=== PATIENT | male | born 1965 | race Caucasian/White ===

== ENCOUNTER 2017-09-25 10:24 | Inpatient (IN) | payer BC, SELFPAY ==
[2017-09-25] VITALS (24 sets, daily range): BP systolic 133–173; BP diastolic 74–99; PULSE 56–109; RESP 11–22; TEMP 36.8–37; O2SAT 94–99; BMI 33.7; BMI 32.1; BMI 33.8
--- NOTE | 2017-09-25 10:34 | RAD_ITS ---
STUDY: X-RAY CHEST REASON FOR EXAM: Male, 52 years old. Chest pain. TECHNIQUE: Single AP portable view of the chest. COMPARISON: Comparison is made with prior study dated July 29, 2010. FINDINGS: EKG electrodes are seen. The lungs are clear and expanded. Scattered calcified granulomas. There is no demonstrated pleural abnormality. Normal size heart. Normal mediastinum and douglas. Normal visualized pulmonary arteries. Normal visualized aortic arch and descending thoracic aorta. There are diffuse degenerative changes of the visualized thoracic spine. Normal visualized ribs, clavicles, and shoulders. There is no demonstrated abnormality of the visualized soft tissue structures of the upper abdomen. RAD/Chest 1 View (Portable) IMPRESSION: No acute abnormality is seen. Electronically Signed: Domingo Rueda MD at 11:00 EST Tel [phone], Service support ,
--- NOTE | 2017-09-25 10:34 | EKG12_ITS ---
Test Reason : CP Blood Pressure : / mmHG Vent. Rate : 069 BPM Atrial Rate : 069 BPM P-R Int : 150 ms QRS Dur : 140 ms QT Int : 414 ms P-R-T Axes : 053 000 -15 degrees QTc Int : 443 ms Normal sinus rhythm Right bundle branch block Abnormal ECG Confirmed by JUANI CORDERO ([id number]), editorial intern ELMER NIXON ([id number]) on 09/27/2017 12:06:09 PM Referred By: LB Confirmed By:JUANI CORDERO
--- NOTE | 2017-09-25 10:43 | ED.DCSUM_ITS ---
- ER Visit Summary Date of Service: 09/25/17 Chief Complaint: Nausea and mild chest pressure now resolved History of Present Illness: The patient is a 52 M prior history of [place] CAD with 1 right RCA stent. That occurred in 2009. Patient's been doing well. He denies any recent exertional chest pain or recent exertional dyspnea. No history of DVT. Currently is not on any blood thinners she previously was on Plavix but he was taken off that by his project engineering director. States this morning he had some chest pressure in his mid chest radiating to both arms similar to his prior [place]V but much less severe. He denies any nausea, vomiting, diaphoresis or dyspnea associated with it. Currently he is symptom-free without any pain or other symptoms. This occurred around 730 this morning. Physical Examination: Well-appearing middle-age male. Vital signs are stable afebrile. Pulse ox 97% on room air no hypoxia. H EENT exam unremarkable. Neck nontender no lymphadenopathy. Lungs clear to auscultation bilaterally. Heart regular rhythm no murmur. Chest wall nontender. Abdomen soft nontender. Patient moving all 4 extremities. They are neurovascularly intact. No edema no cords. No calf tenderness. Neurologic exam normal. Test Results: Chest x-ray no acute abnormality. EKG sinus rhythm rate of 69 with a right bundle branch block. No acute signs of ST elevation. No old EKG available for comparison. CBC normal. BMP normal. Troponin is elevated at 3.0. I discussed all the test results with the patient and his . He will be admitted here for further evaluation and workup I will speak to both the hospitalist and Dr. Costello on for cardiology. Emergency Department Course and Treatment: To go a cardiac workup. He also be given aspirin. This patient was cardiology patient will also be given Brilinta p.o. Treatment Plan: Admission for further cardiac workup I will speak to both the hospitalist and project engineering director. Disposition: Admission Impression: Acute transient chest pain resolved with an abnormal troponin consistent with a non-ST elevation [place] History of prior [place] with CAD and 1 right coronary stent This note was generated with [employer] dictation software. It may contain incorrect words, spelling, and punctuation that were not noted in review of the chart prior to signing ED Disposition - Plan for ED Patient: Chief Complaint: Chest Pain Referrals: Isis Olivera, [NON-STAFF] -
[2017-09-25 10:48] LABS: Absolute Lymphocyte Count 0.71 X10^3/ul (0.83-4.51); Absolute Neutrophil Count 8.6 X10^3/uL (2.0-7.7); Basophil# 0.02 X10^3/uL; Basophil% 0.2 % (0-1); Eosinophil# 0.21 X10^3/uL; Hemoglobin 16.7 g/dl (13.0-16.5); Lymphocyte # 0.71 X10^3/ul (4.0); Lymphocyte % 6.9 % (19-41); Mean Corp Hgb Conc 34.8 g/gl (32-36); Mean Corpuscular Hgb 29.8 pg (27.0-32.0); Mean Corpuscular Volume 85.7 fL (80-94); Mean Platelet Vol. 10.2 fl (6.2-12.0); Monocyte# 0.71 X10^3/uL; Monocyte% 6.9 % (0-10); Neutrophil % 83.8 % (47-70); POSITIVE COUNT NO; POSITIVE DIFFERENTIAL NO; POSITIVE MORPHOLOGY NO; Platelet Count 246 K/mm3 (150-450); RBC Distribution Width CV 13.6 % (11.6-14.6); RBC Distribution Width SD 41.9 fl (35.1-43.9); White Blood Count 10.3 K/mm3 (4.4-11.0)
[2017-09-25] MEDS: Aspirin 81 MG TAB.CHEW 324 MG PO (10:48)
[2017-09-25 11:06] LABS: Anion Gap 9 (5-15); BUN 17 mg/dL (7-18); BUN/Creat Ratio 16.5 RATIO (10-20); Calcium,Total 8.6 mg/dL (8.5-10.1); Chloride 106 mmol/L (98-107); Creatinine, Serum 1.03 mg/dL (0.70-1.30); EST Glomerular Filtration Rate 80 mL/min (>60); Est Glom Filt Rate - Afr Amer 97 mL/min (>60); Estimated Creatinine Clearance 89.35 ml/min; Glucose 90 mg/dL (70-110); Potassium 4.1 mmol/L (3.5-5.1); Sodium Level 141 mmol/L (136-145)
--- NOTE | 2017-09-25 11:06 | ED.RN ---
notified Dr. Betancourt of troponin level 3.0
--- NOTE | 2017-09-25 11:15 | NURSING ---
DR AWAD FOR DR ASHER
--- NOTE | 2017-09-25 11:26 | NURSING ---
PAGED DR CORDERO AND HOSPITALIST
--- NOTE | 2017-09-25 11:54 | NURSING ---
PCU NSTEMI PAINTSIL
[2017-09-25] MEDS: TICAGRELOR 90 MG TABLET 180 MG PO (12:16)
--- NOTE | 2017-09-25 12:58 | ECHOD_ITS ---
Reason For Study: chest pain Procedure This was a 2D Doppler, Color Flow transthoracic echocardiogram. Exam performed portable in patient room. Left Ventricle Mildly dilated left ventricle. The estimated ejection fraction is 50-55 %. There are regional wall motion abnormalities as specified. Posterior-Basal: Akinetic. Right Ventricle Mildly dilated right ventricle. Normal systolic function. Atria Normal left atrium. Normal right atrium. Normal atrial septum. Mitral Valve The mitral valve is structurally normal. No prolapse or stenosis seen. Tricuspid Valve Normal tricuspid valve. Trivial tricuspid valve insufficiency. Right ventricular systolic pressure estimated to be 27 mmHg. Aortic Valve Normal aortic valve. Trisinus/trileaflet aortic valve. Pulmonic Valve Normal pulmonic valve. Great Vessels Normal aortic root. Normal arch. Normal inferior vena cava. Inferior vena cava collapse with sniff. Pericardium/Pleural No pericardial effusion. Medication Definity0.2ml given slow IV push to enhance endocardial definition. MMode/2D Measurements & Calculations LVIDd: 5.4 cm IVSd: 1.0 cm Ao root diam: 3.0 cm LVIDs: 4.4 cm LVPWd: 1.2 cm LA dimension: 4.2 cm RVDd: 3.5 cm FS: 18.1 % LAV(MOD-bp): 69.3 ml LA A4 area: 20.8 cm2 RA A4 area: 16.4 cm2 LAV(MOD-bp) Indexed: 30.2 ml/m2 LAV(MOD-sp2): 67.4 ml LAV(MOD-sp4): 67.4 ml Doppler Measurements & Calculations MV E max car: 61.3 cm/sec Lat Peak E' Car: 8.6 cm/sec Med Peak E' Car: 6.8 cm/sec MV A max car: 74.8 cm/sec E/E' lat: 7.1 E/E' med: 9.1 MV E/A: 0.82 Ao V2 max: 115.2 cm/sec LV V1 max: 97.1 cm/sec PA V2 max: 96.2 cm/sec Ao max P.3 mmHg LV V1 max P.8 mmHg TR max car: 243.1 cm/sec TR max P.7 mmHg Interpretation Summary Mildly dilated left ventricle. The estimated ejection fraction is 50-55 %. There are regional wall motion abnormalities as specified. Mildly dilated right ventricle. Right ventricular systolic pressure estimated to be 27 mmHg. Compared to echo report dated 01/21/2010, pt now appears to have proximal inferior/posterior akinesis. LV function remains preserved. Ordering Physician: Sandra Ballard Referring Physician: Paige Alfredo Performed By: Loren Sotomayor, RYLEY, RVT
--- NOTE | 2017-09-25 13:30 | PCM.CONS.C ---
Problem List (1) NSTEMI (non-ST elevated myocardial infarction) Status: Acute (2) CAD (coronary artery disease) Status: Chronic Qualifiers: Coronary Disease-Associated Artery/Lesion type: [place] artery (3) S/P PTCA (percutaneous transluminal coronary angioplasty) Status: Chronic Reason for Consult Date of Consultation: 09/25/17 History of Present Illness: The patient is a 52 year old white male with a past cardiovascular history of premature CAD status post an acute inferior ST segment elevation [place] status post RCA PTCA/stent (at [facility]) who is referred for evaluation of symptoms concerning for unstable angina pectoris and abnormal cardiac enzymes compatible with an acute non-ST segment elevation [place]. The patient states that for the last few days he has not felt as his usual self. He has been noticing waxing and waning chest discomfort and burning which involves both axilla. This was more prominent today. He did not note ongoing dyspnea, nausea, emesis, or diaphoresis. He did not have any near-syncope or syncope. Based upon his past history he presented to the emergency department for evaluation. On evaluation he had a troponin I level which was elevated at 3.0. He had an ECG which demonstrated sinus rhythm with a right bundle branch block pattern. He was referred for further cardiovascular evaluation with diagnostic cardiac catheterization. He did not participate in cardiac rehabilitation following his original acute coronary syndrome event based on financial issues. However, he states he has remained active at home and at work. He has denied orthopnea, PND, or peripheral pitting edema. He states that he did follow with his cardiac specialist in [place], [place] for period of time. He had a post event exercise tolerance test. He has not required a return trip to the cardiac catheterization laboratory. [] Past Medical History Allergies/Adverse Reactions: Allergies No Known Allergies Allergy (Verified 09/25/17 10:36) Home Medications: Ambulatory Orders Medication Instructions Recorded Aspirin 81 mg PO DAILY 02/06/17 Atorvastatin Calcium [Lipitor] 40 mg PO QHS 02/06/17 Carvedilol [Coreg] 3.125 mg PO BID 02/06/17 Past Medical History (Chronic Problems): Chronic Problems CAD (coronary artery disease) (Chronic) S/P PTCA (percutaneous transluminal coronary angioplasty) (Chronic) Surgical History: angioplasty Lives: Spouse/ Significant Other Smoking Status: Never smoker Alcohol: None Drugs: None Review of Systems - Review of Systems General: Denies: Fever, Night Sweats, Fatigue Cardiovascular: Reports: Chest Discomfort, Chest Discomfort at Rest. Denies: Shortness of Breath, Orthopnea, PND, Peripheral Edema, Palpitations, Lightheadedness, Dizziness, Near Syncope, Syncope Respiratory: Denies: Cough, Sputum Production, Hemoptysis Gastrointestinal: Denies: Hematemesis, Hematochezia, Melena Genitourinary: Denies: Dysuria, Hematuria Skin: Denies: Rash Subjectve: This is a 52-year-old white male who appears to be resting reasonably comfortably at this time in no acute distress. Objective: Vital Signs Temp Pulse Resp BP Pulse Ox 98.6 F 76 14 148/98 H 96 09/25/17 10:28 09/25/17 12:22 09/25/17 12:22 09/25/17 12:22 09/25/17 12:22 Oxygen Flow Rate 2 Oxygen Delivery Method Nasal Cannula General: Awake, Alert, Oriented x 3, Cooperative, No Acute Distress, Obese Neck: No JVD Lungs: Clear to auscultation Cardiovascular: Regular Rhythm, Normal S1, Normal S2, Positive S4 Vascular: No Carotid Bruits Abdomen: Bowel Sounds Present, Soft, Non Tender Extremities: No Cyanosis, No Clubbing, No edema Neurological: No Focal Motor or Sensory Deficit Rhythm: Sinus rhythm EKG: Sinus rhythm; right bundle branch block pattern CXR: Preliminary evaluation: No acute cardiopulmonary disease process appreciated Assessment/Plan 1. Acute non-ST segment elevation [place] The patient presents with symptoms concerning for unstable angina pectoris and abnormal troponin I levels compatible with an acute non-ST segment elevation [place]. He has been treated medically. This has included antiplatelet therapy with the addition of Brilinta 180 mg p.o. ?1. His case has been reviewed. He has been recommended for further evaluation with diagnostic cardiac catheterization. The procedure and risks were discussed with him. He was agreeable to this approach. 2. CAD The patient has been diagnosed with CAD as noted in the past. He states that his family history is prominent for cardiovascular disease and cardiovascular disease associated at early ages. He will need to continue his evaluation as noted above. He will need to continue medical management. This will include a combination of agents with aspirin, antiplatelet therapy, nitrates as needed, beta-blockers, possibly afterload reducing agents, lipid-lowering agents, etc. 3. Status post PTCA/stent The patient he received an RCA PTCA/stent in the past. Again he has been treated medically. He has not required a return trip to the cardiac catheterization laboratory. Overall, the present time, the patient will continue medical management. He has been recommended for further evaluation with diagnostic cardiac catheterization. Again this was discussed with the patient with respect procedures and risks and he was agreeable to this. Comment: The patient's case has been discussed with the [facility] emergency department staff. This note was generated with [employer] Dictation software. Every effort was made to ensure accuracy, however, computerized loom changeover operator mistakes may persist.
[2017-09-25 13:35] LABS: Magnesium 2.2 mg/dL (1.6-2.6); Thyroid Stim Hormone (TSH) 0.78 uIU/mL (0.358-3.74)
--- NOTE | 2017-09-25 13:39 | CON.PCM_ITS ---
Problem List (1) NSTEMI (non-ST elevated myocardial infarction) Status: Acute (2) CAD (coronary artery disease) Status: Chronic Qualifiers: Coronary Disease-Associated Artery/Lesion type: [place] artery (3) S/P PTCA (percutaneous transluminal coronary angioplasty) Status: Chronic Reason for Consult Date of Consultation: 09/25/17 History of Present Illness: The patient is a 52 year old white male with a past cardiovascular history of premature CAD status post an acute inferior ST segment elevation [place] status post RCA PTCA/stent (at [facility]) who is referred for evaluation of symptoms concerning for unstable angina pectoris and abnormal cardiac enzymes compatible with an acute non-ST segment elevation [place]. The patient states that for the last few days he has not felt as his usual self. He has been noticing waxing and waning chest discomfort and burning which involves both axilla. This was more prominent today. He did not note ongoing dyspnea, nausea, emesis , or diaphoresis. He did not have any near-syncope or syncope. Based upon his past history he presented to the emergency department for evaluation. On evaluation he had a troponin I level which was elevated at 3.0. He had an ECG which demonstrated sinus rhythm with a right bundle branch block pattern. He was referred for further cardiovascular evaluation with diagnostic cardiac catheterization. He did not participate in cardiac rehabilitation following his original acute coronary syndrome event based on financial issues. However, he states he has remained active at home and at work. He has denied orthopnea, PND, or peripheral pitting edema. He states that he did follow with his ct manager in [place], [place] for period of time. He had a post event exercise tolerance test. He has not required a return trip to the cardiac catheterization laboratory. [] Past Medical History Allergies/Adverse Reactions: Allergies No Known Allergies Allergy (Verified 09/25/17 10:36) Home Medications: Ambulatory Orders Medication Instructions Recorded Aspirin 81 mg PO DAILY 02/06/17 Atorvastatin Calcium [Lipitor] 40 mg PO QHS 02/06/17 Carvedilol [Coreg] 3.125 mg PO BID 02/06/17 Past Medical History (Chronic Problems): Chronic Problems CAD (coronary artery disease) (Chronic) S/P PTCA (percutaneous transluminal coronary angioplasty) (Chronic) Surgical History: angioplasty Lives: Spouse/ Significant Other Smoking Status: Never smoker Alcohol: None Drugs: None Review of Systems - Review of Systems General: Denies: Fever, Night Sweats, Fatigue Cardiovascular: Reports: Chest Discomfort, Chest Discomfort at Rest. Denies: Shortness of Breath, Orthopnea, PND, Peripheral Edema, Palpitations, Lightheadedness, Dizziness, Near Syncope, Syncope Respiratory: Denies: Cough, Sputum Production, Hemoptysis Gastrointestinal: Denies: Hematemesis, Hematochezia, Melena Genitourinary: Denies: Dysuria, Hematuria Skin: Denies: Rash Subjectve: This is a 52-year-old white male who appears to be resting reasonably comfortably at this time in no acute distress. Objective: Vital Signs Temp Pulse Resp BP Pulse Ox 98.6 F 76 14 148/98 H 96 09/25/17 10:28 09/25/17 12:22 09/25/17 12:22 09/25/17 12:22 09/25/17 12:22 Oxygen Flow Rate 2 Oxygen Delivery Method Nasal Cannula General: Awake, Alert, Oriented x 3, Cooperative, No Acute Distress, Obese Neck: No JVD Lungs: Clear to auscultation Cardiovascular: Regular Rhythm, Normal S1, Normal S2, Positive S4 Vascular: No Carotid Bruits Abdomen: Bowel Sounds Present, Soft, Non Tender Extremities: No Cyanosis, No Clubbing, No edema Neurological: No Focal Motor or Sensory Deficit Rhythm: Sinus rhythm EKG: Sinus rhythm; right bundle branch block pattern CXR: Preliminary evaluation: No acute cardiopulmonary disease process appreciated Assessment/Plan 1. Acute non-ST segment elevation [place] The patient presents with symptoms concerning for unstable angina pectoris and abnormal troponin I levels compatible with an acute non-ST segment elevation [place]. He has been treated medically. This has included antiplatelet therapy with the addition of Brilinta 180 mg p.o. ?1. His case has been reviewed. He has been recommended for further evaluation with diagnostic cardiac catheterization. The procedure and risks were discussed with him. He was agreeable to this approach. 2. CAD The patient has been diagnosed with CAD as noted in the past. He states that his family history is prominent for cardiovascular disease and cardiovascular disease associated at early ages. He will need to continue his evaluation as noted above. He will need to continue medical management. This will include a combination of agents with aspirin, antiplatelet therapy, nitrates as needed, beta-blockers, possibly afterload reducing agents, lipid-lowering agents, etc. 3. Status post PTCA/stent The patient he received an RCA PTCA/stent in the past. Again he has been treated medically. He has not required a return trip to the cardiac catheterization laboratory. Overall, the present time, the patient will continue medical management. He has been recommended for further evaluation with diagnostic cardiac catheterization. Again this was discussed with the patient with respect procedures and risks and he was agreeable to this. Comment: The patient's case has been discussed with the [facility] emergency department staff. This note was generated with [employer] Dictation software. Every effort was made to ensure accuracy, however, computerized leather softener mistakes may persist.
[2017-09-25] MEDS: 0.9% Normal Saline 1,000 ML 15 ML IV (13:40)
--- NOTE | 2017-09-25 14:37 | CASEMGMT ---
According to [employer] website, the following are in-network tertiary facilities: [facility], [place], [facility], [facility], [facility], [facility], [place], [facility], and . Kennedy FORD CM
--- NOTE | 2017-09-25 15:19 | PCM.HP.STD ---
Problem List (1) NSTEMI (non-ST elevated myocardial infarction) Status: Acute (2) CAD (coronary artery disease) Status: Chronic Qualifiers: Coronary Disease-Associated Artery/Lesion type: [place] artery Associated angina: angina presence unspecified History of Present Illness Date of Admission: 09/25/17 Chief Complaint: Chest pain - today The patient is a 52 year old M with past medical history of CAD status post stenting the RCA in 2009, hypertension, hyperlipidemia who comes in with complaints of left-sided chest discomfort that came on suddenly, with some radiation to the left side of his chest associated with some shortness of breath but no nausea or diaphoresis or dizziness or palpitations. This does not feel the same as what he felt in 2010. Patient however decided to come to the ED to have it checked. In the ED, his vitals were stable with temperature of 98.6, heart rate was 75, blood pressure 173/94, SPO2 is 97% on room air. Initial admitting blood work was significant for troponin of 3.0, otherwise unremarkable WBC, Hb, platelets as well as BMP. His admitting EKG showed a right bundle branch block with no acute ST-T changes. Chest x-ray was negative for any acute abnormalities Past Medical History Past Medical History (Chronic Problems): Chronic Problems CAD (coronary artery disease) (Chronic) S/P PTCA (percutaneous transluminal coronary angioplasty) (Chronic) Allergies No Known Allergies Allergy (Verified 09/25/17 10:36) Home Medications: Ambulatory Orders Medication Instructions Recorded Aspirin 81 mg PO DAILY 02/06/17 Atorvastatin Calcium [Lipitor] 40 mg PO QHS 02/06/17 Carvedilol [Coreg] 3.125 mg PO BID 02/06/17 Ibuprofen 200 mg PO Q6H PRN PRN 09/25/17 Surgical History: angioplasty, herniorrhaphy, total knee arthroplasty - left, - - ankle surgery, left Psychiatric History: No pertinent psych hx Lives: Spouse/ Significant Other Smoking Status: Never smoker Alcohol: None Drugs: None - *Family History Maternal History Items: Heart Disease Paternal History Items: Heart Disease Review of Systems Constitutional: Denies: Anorexia, Chills, Fever, Weakness, Weight Change Eyes: Denies: Blurred vision, Cataracts, Conjunctivae Inflammation HEENT: Denies: Difficulty Hearing, Difficulty Swallowing, Head Aches, Sinus Congestion, Sinus Drainage, Sore Throat, Visual Changes Cardiovascular: Reports: Chest Pain. Denies: Chest Tightness, Edema, Light Headedness, Orthopnea, Palpitations, Paroxysmal Noc. Dyspnea Respiratory: Denies: Cough, Hemoptysis, Pleuritic Pain, Shortness of Breath, Shortness of breath at rest, Shortness of breath upon exertion, Sputum production Gastrointestinal: Denies: Abdominal Pain, Constipation, Diarrhea, Hematemesis, Nausea, Vomiting Genitourinary: Denies: Dysuria, Frequency Musculoskeletal: Denies: Joint Pain, Joint stiffness, Joint swelling, Joint Tenderness Skin: Denies: Rash, Wounds Neurological: Denies: Difficulty swallowing, Focal weakness, Numbness, Tingling Psychiatric: Denies: Anxiety, Depression, Homicidal Ideations, Suicidal Ideations Hematologic/ Lymphatic: Denies: Easy Bruising, Easy Bleeding VTE Information - Inpt Only VTE Present on Admission: No VTE Pharm Prophylaxis ordered?: Yes Patient Problems: Active and Suspected Problems NSTEMI (non-ST elevated myocardial infarction) (Acute) - Physical Exam General: Alert, Oriented x3, Cooperative, No apparent distress HEENT: Atraumatic, PERRLA, EOMI, Normocephalic Oral: Moist Mucosa Neck: Supple Lungs: Clear to auscultation, Normal air movement Cardiovascular: Regular rate, Regular Rhythm, Normal S1, Normal S2, No murmurs Abdomen: Bowel Sounds Present, Soft, Non Tender Extremities: No edema, Capillary Refill Less than 3 Seconds Skin: No rashes, No breakdown Musculoskeletal: No Tenderness to Palpation of Joints or Extremities Lymphatic: No Cervical, Supraclavicular, or Inguinal Adenopathy Neurological: Cranial nerves II-XII grossly intact, Neuro grossly intact Psych/Mental Status: Normal Affect, Appropriate Vital Signs Temp Pulse Resp BP Pulse Ox 98.6 F 76 14 148/98 H 96 09/25/17 10:28 09/25/17 12:22 09/25/17 12:22 09/25/17 12:22 09/25/17 12:22 Oxygen Flow Rate 2 Oxygen Delivery Method Nasal Cannula Weight: 58.967 kg Body Mass Index (BMI) 18.1 Assessment/Plan Active and Suspected Problems NSTEMI (non-ST elevated myocardial infarction) (Acute) 52 y/o male with PMHx of CAD s/p stent, hypertension, hyperlipidemia seen with complaints of chest pain ?1 day. 1. NSTEMI in a patient with CAD status post stent in 2009, troponin score 3.0, started on aspirin and Brilinta by the ED, will start on Lovenox, cardiology consulted, patient will go for cardiac cath, will follow-up recommendation post cardiac cath 2. Hypertension, uncontrolled, on carvedilol, will give metoprolol 2.5 mg IV ?1, continue to monitor 3. Hyperlipidemia, on statin 4. DVT PPX - on therapeutic dosing of lovenox Code Visit Inpatient E&M: 02843 Init Hosp L2
--- NOTE | 2017-09-25 15:25 | NURSING ---
REPORT CALLED TO ICU
--- NOTE | 2017-09-25 15:33 | CL.I_ITS ---
Patient Name: RAUL DAVIS Study Date: 09/25/2017 Performing: Raul Lopez MD Ht: 70.86 inches 180 cm : 1965 Wt: 242.51 lbs 110 kg Age: 52 Gender: male BSA: 2.29 PROCEDURE(S) PERFORMED [id number] W OR WO PTCA, SINGLE CORONARY ARTERY CLINICAL PROFILE AND CO-MORBIDITIES Patient presents with NSTEMI for urgent cardiac cath INDICATIONS: Unstable Angina Stress/Imaging Stress/Image Study Performed: No Angina Classification Anginal Classification w/in 2 Weeks: CCS III CAD Presentations: Non-STEMI. Symptom onset Date/Time: 09/25/2017 Time Not Available Comorbidities/Risk Factors: Hypertension Dyslipidemia Prior ME Prior PCI CONCLUSIONS Successful PTCA/CRYSTAL of the of Mid LCX with a 2.5 x 16 Promus Synergy stent, post dilated with a 2.5 x 12 NC balloon. 75%-->0%, no dissection. RECOMMENDATIONS Highly recommend quitting all tobacco products Follow up with primary anesthesia attending Risk factor modification ASA Indefinitley Plavix for at least 12 months Routine post interventional care Refer for Outpatient Cardiac Rehab Manual sheath removal per protocol Staged PCI of LAD if symptomatic chest pain in next 2 weeks. If no angina after d/c home, recommend stress test to evaluate distal LAD lesion. LCX appeared to be the tighter of the 2 arteries and most likely culprit. L to R collaterals appear to be old and distal RCA occlusion appears to be old. DESCRIPTION OF PROCEDURE The patient arrived to the procedure lab. The risks and benefits of the procedure as well as a full d escription of our services here and current unavailability of surgical backup were fully explained to the patient and/or their significant other prior to the catheterization. The Timeout was completed, verifying the correct patient and procedure. The patient's procedural site was prepped and draped in the usual fashion. Local anesthetic was given subcutaneously to right groin region with Lidocaine 2% Using a modified Seldinger technique,arterial access was obtained via the right femoral artery, a 4Fr sheath was inserted Left Coronary Artery selective angiography was performed in multiple views using a 4 Fr. JL5 catheter. Right Coronary Artery selective angiography was then performed in multiple vie ws using a 4 Fr. 3DRC catheter. Left Ventriculography was performed in CANCINO projection using a 4 Fr. P igtail catheter. LV to AO pullback pressures were then recorded. Simultaneous pressures were then rec orded.The images were reviewed and options discussed. A decision was then made to proceed with an Int ervention, IVUS or other adjunct procedure. Arterial sheath was exchanged for a 6 Fr Sheath Angiogram performed pre balloon dilatation. ebu 3.75 Guide catheter was inserted and engaged into the LCA. bmw Guide wire was advanced to the Circumflex. emerge 2 x 12 Balloon catheter was inserted. PTCA balloon inflated at 8 atms for 13 secs PTCA balloon inflated at 8 atms for 40 secs Angiogram performed post balloon dilatation. synergy 2.5 x 16 Drug El uting stent was advanced across the lesion in the circumflex, mid. Angiogram performed post stent dep loyment. nc emerge 2.5 x 12 Balloon catheter was inserted post stent. Angiogram performed post stent deployment.. . The arterial sheath was sutured in place and capped. INTERVENTION INFORMATION LESION SITE: Circumflex (Mid) Lesion Complexity: Non-High/Non-C, lesion at bifurcation: No, thrombus present: No, lesion length: 16 mm, culprit lesion: Yes Pre Stenosis: 75 % Pre intervention JACKY flow: 3 PROCEDURE: Drug Eluting Stent with pre and post dilatation Post Stenosis: 0 % Post intervention JACKY flow: 3 Lesion Devices: POP Propertiestronic 6 Fr EBU3.75 SH 100cm Guide Catheter Castano .014 [employer] [place] Straight 190cm Andrei Sci EMERGE MR 2.00x12 BALLOON Andrei Sci Synergy MR CRYSTAL 2.50x16 Andrei Sci NC EMERGE MR 2.50x12 BALLOON COMPLICATIONS No Complications PROCEDURE MEDICATIONS Versed 1 mg IV Fentanyl 25 mcg IV Oxygen: 2 L/min via nasal cannula Heparin 6000 unit(s) IV 09/25/2017 15:05:47 Nitro 200 mcg IC 09/25/2017 15:09:47 Nitro 200 mcg IC 09/25/2017 15:09:47 SUMMARY OF HEMODYNAMIC DATA Time AIR REST ECG 14:09:37 AO 140/83 (111) SA 14:27:18 LV 142/3, 36 14:35:13 LV 155/1, 28 14:35:20 LV 150/11, 49 14:36:31 LV 143/4, 34 14:36:37 LVp 144/1, 32 14:36:42 AOp 144/87 (113) 14:36:47 FA 179/92 126) 14:46:34 Signed By Raul Lopez MD On 09/25/2017 15:32:33 Raul Lopez MD
--- NOTE | 2017-09-25 15:34 | EKG12_ITS ---
Test Reason : POST-PCI Blood Pressure : / mmHG Vent. Rate : 076 BPM Atrial Rate : 076 BPM P-R Int : 154 ms QRS Dur : 134 ms QT Int : 416 ms P-R-T Axes : 057 -20 -12 degrees QTc Int : 468 ms Normal sinus rhythm Right bundle branch block Inferior infarct , age undetermined Abnormal ECG When compared with ECG of 25-SEP-2017 10:24, MANUAL COMPARISON REQUIRED, DATA IS UNCONFIRMED Confirmed by JUANI CORDERO ([id number]), brands editor ELMER NIXON ([id number]) on 09/27/2017 1:27:35 PM Referred By: GIL Confirmed By:JUANI CORDERO
[2017-09-25 15:46] LABS: ACT Activated Clotting Time 219 sec (74-137)
--- NOTE | 2017-09-25 15:53 | CL.D_ITS ---
Patient Name: JUANI DAVIS Study Date: 09/25/2017 Performing: Ethan Costello MD Ht: 70.86 inches 180 cm : 1965 Wt: 242.51 lbs 110 kg Age: 52 Gender: male BSA: 2.29 PROCEDURE(S) PERFORMED [id number]/COR/LV [id number] W OR WO PTCA, SINGLE CORONARY ARTERY CLINICAL PROFILE AND INDICATIONS Patient presents with NSTEMI for urgent cardiac cath INDICATIONS: Unstable Angina, Unstable Angina, Acute Coronary Syndrome, Non-Q OH Stress/Imaging Stress/Image Study Performed: No Stress/Image Study Performed: No Angina Classification Anginal Classification w/in 2 Weeks: CCS III CAD Presentations: Non-STEMI. Symptom onset Date/Time: 09/25/2017 Time Not Available Unstable disha na. Non-STEMI. Comorbidities/Risk Factors: Hypertension Dyslipidemia Prior OH Prior PCI CONCLUSIONS Elevated Left Ventricular End Diastolic Pressure Segmented LV systolic dysfunction- Mild LVEF: by LV gram 45 % [place] Multivessel CAD RECOMMENDATIONS Risk factor modification Medical therapy Referred for immediate PCI of the LCX system DESCRIPTION OF PROCEDURE The patient arrived to the procedure lab. The risks and benefits of the procedure as well as a full d escription of our services here and current unavailability of surgical backup were fully explained to the patient and/or their significant other prior to the catheterization. The Timeout was completed, verifying the correct patient and procedure. The patient's procedural site was prepped and draped in the usual fashion. Local anesthetic was given subcutaneously to right groin region with Lidocaine 2%. Using a modified Seldinger technique, arterial access was obtained via the right femoral artery, a 4 Fr sheath was inserted Left Coronary Artery selective angiography was performed in multiple views us ing a 4 Fr. JL5 catheter. Right Coronary Artery selective angiography was then performed in multiple views using a 4 Fr. 3DRC catheter. Left Ventriculography was performed in CANCINO projection using a 4 Fr . Pigtail catheter. LV to AO pullback pressures were then recorded. Simultaneous pressures were then recorded.The arterial sheath was sutured in place and capped CORONARY ANGIOGRAPHY DOMINANCE: Right Dominant LEFT HEART ASSESSMENT Left Ventricular Ejection Fraction: by LV Gram 45 % Inferior Basal Akinesis Elevated Left Ventricular End Diastolic Pressure LVEDP: 28 mmHg LEFT MAIN: Angiographically normal LEFT ANTERIOR DECENDING ARTERY: Mild luminal irregularities MID LAD: 75 % Stenosis CIRCUMFLEX ARTERY: Mild luminal irregularities PROX CIRC: Eccentric: 90 % Stenosis RIGHT CORONARY ARTERY: Mild luminal irregularities PROX RCA: Previously placed stent is patent DISTAL RCA: is occluded with the remainder of the vessel filling late, faintly, and partially COLLATERAL FLOW: Collateral flow from Left to Right: Left to Right Collateral Flow to the RAVS and RP DA which fill late, faintly, and partially VALVE FINDINGS: Normal Aortic Valve function Normal Mitral Valve function AORTIC ROOT: Angiographically normal COMPLICATIONS No Complications PROCEDURE MEDICATIONS Versed 1 mg IV Fentanyl 25 mcg IV Fentanyl 25 mcg IV Oxygen: 2 L/min via nasal cannula Heparin 6000 unit(s) IV 09/25/2017 15:05:47 Heparin 4000 unit(s) IV 09/25/2017 15:33:54 Nitro 200 mcg IC 09/25/2017 15:09:47 Nitro 200 mcg IC 09/25/2017 15:09:47 SUMMARY OF HEMODYNAMIC DATA Time AIR REST ECG 14:09:37 AO 140/83 (111) SA 14:27:18 LV 142/3, 36 14:35:13 LV 155/1, 28 14:35:20 LV 150/11, 49 14:36:31 LV 143/4, 34 14:36:37 LVp 144/1, 32 14:36:42 AOp 144/87 (113) 14:36:47 FA 179/92 (126) 14:46:34 RM AIR REST 15:32:57 Signed By Ethan Costello MD On 09/25/2017 15:53:15 Ethan Costello MD
[2017-09-25] MEDS: 0.9% Normal Saline 1,000 ML 150 ML IV (16:02)
[2017-09-25 16:07] LABS: Hematocrit 42.8 % (40-54); Hemoglobin 14.6 g/dl (13.0-16.5); Mean Corp Hgb Conc 34.1 g/gl (32-36); Mean Corpuscular Hgb 29.9 pg (27.0-32.0); Mean Corpuscular Volume 87.5 fL (80-94); Mean Platelet Vol. 9.9 fl (6.2-12.0); Platelet Count 202 K/mm3 (150-450); RBC Distribution Width CV 13.4 % (11.6-14.6); RBC Distribution Width SD 42.5 fl (35.1-43.9); Red Blood Count 4.89 M/mm3 (4.6-6.2); White Blood Count 10.5 K/mm3 (4.4-11.0)
[2017-09-25 16:13] LABS: Scan Indicated on CBC? Y/N NO
[2017-09-25 16:31] LABS: CPK Total, Creatine Kinase 388 U/L (39-308)
[2017-09-25 17:46] LABS: ACT Activated Clotting Time 180 sec (74-137)
[2017-09-25 17:46] LABS: M R Staph aureus DNA By PCR Negative (Negative); Probe Check PASS; Specimen Processing Control PASS
[2017-09-25 18:41] LABS: ACT Activated Clotting Time 153 sec (74-137)
[2017-09-25] MEDS: 0.9% NaCl Peripheral Flush Adult/Peds IV ×2 (18:46→18:47)
--- NOTE | 2017-09-25 19:35 | PCM.PN.CARD ---
Subjectve: He is recuperating status post his recent cardiac catheterization/LCx PCI. He denies any ongoing chest discomfort or difficulty breathing at this time. Objective: Vital Signs Temp Pulse Resp BP Pulse Ox 98.5 F 74 18 155/94 H 99 09/25/17 15:45 09/25/17 18:47 09/25/17 18:47 09/25/17 18:47 09/25/17 18:47 Oxygen Flow Rate 2 Oxygen Delivery Method Room Air Weight: 230 lb Body Mass Index (BMI) 32.1 Intake and Output for Last 24 Hours 09/23/17 09/24/17 09/25/17 23:59 23:59 23:59 Intake Total 300 / 300 Output Total 750 / 750 Balance -450 / -450 General: Awake, Alert, Oriented x 3, Cooperative, No Acute Distress Neck: No JVD Lungs: Clear to auscultation Cardiovascular: Regular Rhythm, Normal S1, Normal S2, Positive S4 Vascular: Normal Femoral Pulses Abdomen: Bowel Sounds Present, Soft, Non Tender Extremities: No edema Neurological: No Focal Motor or Sensory Deficit 09/25/17 15:50: Troponin I 8.89 H* 09/25/17 15:50: WBC 10.5, RBC 4.89, Hgb 14.6, Hct 42.8, MCV 87.5, MCH 29.9, MCHC 34.1, RDW 13.4, RDW Differential 42.5, Plt Count 202, MPV 9.9 Rhythm: Sinus rhythm EKG: Sinus rhythm; right bundle branch block pattern Assessment/Plan 1. Acute non-ST segment elevation OH The patient presents with symptoms concerning for unstable angina pectoris and abnormal troponin I levels compatible with an acute non-ST segment elevation OH. He has been treated medically. He is now status post diagnostic cardiac catheterization. He has been noted to have left ventricular regional wall motion abnormalities compatible to previous inferior OH. His left main coronary artery is patent, his LAD demonstrated a mid approximate 75% stenosis, his LCx demonstrated a proximal to mid 90% stenosis, his RCA demonstrated a proximal patent stent but his distal RCA was occluded with the remainder the system filling late, faintly, and partially-also from [id number] collateral flow. He subsequently underwent LCx PTCA/stent. He may require staged PCI of the LAD. There was no attempt to revascularize the RCA system. He will continue medical therapy. Over time he should be considered for outpatient cardiac rehabilitation therapy as well. 2. CAD The patient has been diagnosed with CAD as noted in the past. His evaluation is as noted above. This time he will continue medical management. 3. Status post PTCA/stent The patient he received an RCA PTCA/stent in the past. He is now status post and LCx PTCA/stent. Again he will continue medical management and follow-up. This note was generated with [employer] Dictation software. Every effort was made to ensure accuracy, however, computerized painter ordnance mistakes may persist.
--- NOTE | 2017-09-25 19:39 | PN.CARD_ITS ---
Subjectve: He is recuperating status post his recent cardiac catheterization/LCx PCI. He denies any ongoing chest discomfort or difficulty breathing at this time. Objective: Vital Signs Temp Pulse Resp BP Pulse Ox 98.5 F 74 18 155/94 H 99 09/25/17 15:45 09/25/17 18:47 09/25/17 18:47 09/25/17 18:47 09/25/17 18:47 Oxygen Flow Rate 2 Oxygen Delivery Method Room Air Weight: 230 lb Body Mass Index (BMI) 32.1 Intake and Output for Last 24 Hours 09/23/17 09/24/17 09/25/17 23:59 23:59 23:59 Intake Total 300 / 300 Output Total 750 / 750 Balance -450 / -450 General: Awake, Alert, Oriented x 3, Cooperative, No Acute Distress Neck: No JVD Lungs: Clear to auscultation Cardiovascular: Regular Rhythm, Normal S1, Normal S2, Positive S4 Vascular: Normal Femoral Pulses Abdomen: Bowel Sounds Present, Soft, Non Tender Extremities: No edema Neurological: No Focal Motor or Sensory Deficit 09/25/17 15:50: Troponin I 8.89 H* 09/25/17 15:50: WBC 10.5, RBC 4.89, Hgb 14.6, Hct 42.8, MCV 87.5, MCH 29.9, MCHC 34.1, RDW 13.4, RDW Differential 42.5, Plt Count 202, MPV 9.9 Rhythm: Sinus rhythm EKG: Sinus rhythm; right bundle branch block pattern Assessment/Plan 1. Acute non-ST segment elevation NE The patient presents with symptoms concerning for unstable angina pectoris and abnormal troponin I levels compatible with an acute non-ST segment elevation NE. He has been treated medically. He is now status post diagnostic cardiac catheterization. He has been noted to have left ventricular regional wall motion abnormalities compatible to previous inferior NE. His left main coronary artery is patent, his LAD demonstrated a mid approximate 75% stenosis, his LCx demonstrated a proximal to mid 90% stenosis, his RCA demonstrated a proximal patent stent but his distal RCA was occluded with the remainder the system filling late, faintly, and partially- also from [id number] collateral flow. He subsequently underwent LCx PTCA/ stent. He may require staged PCI of the LAD. There was no attempt to revascularize the RCA system. He will continue medical therapy. Over time he should be considered for outpatient cardiac rehabilitation therapy as well. 2. CAD The patient has been diagnosed with CAD as noted in the past. His evaluation is as noted above. This time he will continue medical management. 3. Status post PTCA/stent The patient he received an RCA PTCA/stent in the past. He is now status post and LCx PTCA/stent. Again he will continue medical management and follow-up. This note was generated with [employer] Dictation software. Every effort was made to ensure accuracy, however, computerized railcar brake operator mistakes may persist.
[2017-09-25] MEDS: Acetaminophen 325 MG Tablet 650 MG PO (20:34)
[2017-09-25] MEDS: Senna/Docusate Sodium 1 Tablet 2 TABLET PO (20:55)
[2017-09-25] MEDS: TICAGRELOR 90 MG TABLET PO (20:55)
[2017-09-25] MEDS: Carvedilol 6.25 MG Tablet PO (20:55)
[2017-09-25 22:30] LABS: Hematocrit 42.9 % (40-54); Hemoglobin 14.7 g/dl (13.0-16.5); Mean Corp Hgb Conc 34.3 g/gl (32-36); Mean Corpuscular Hgb 29.9 pg (27.0-32.0); Mean Corpuscular Volume 87.2 fL (80-94); Platelet Count 194 K/mm3 (150-450); RBC Distribution Width CV 13.5 % (11.6-14.6); RBC Distribution Width SD 42.7 fl (35.1-43.9); Red Blood Count 4.92 M/mm3 (4.6-6.2); White Blood Count 10.1 K/mm3 (4.4-11.0)
[2017-09-25 22:33] LABS: Scan Indicated on CBC? Y/N NO
[2017-09-25 22:39] LABS: CPK Total, Creatine Kinase 528 U/L (39-308)
[2017-09-26] VITALS (21 sets, daily range): BP systolic 108–149; BP diastolic 51–100; PULSE 68–100; RESP 10–21; TEMP 36.7–37.4; O2SAT 93–98; BMI 32.1
[2017-09-26 04:41] LABS: Hematocrit 41.1 % (40-54); Hemoglobin 14.7 g/dl (13.0-16.5); Mean Corp Hgb Conc 35.8 g/gl (32-36); Mean Corpuscular Hgb 30.8 pg (27.0-32.0); Mean Platelet Vol. 9.7 fl (6.2-12.0); Platelet Count 219 K/mm3 (150-450); RBC Distribution Width CV 13.5 % (11.6-14.6); RBC Distribution Width SD 41.4 fl (35.1-43.9); Red Blood Count 4.78 M/mm3 (4.6-6.2); White Blood Count 8.2 K/mm3 (4.4-11.0)
[2017-09-26 05:01] LABS: Scan Indicated on CBC? Y/N NO
[2017-09-26 05:03] LABS: Anion Gap 10 (5-15); BUN 15 mg/dL (7-18); BUN/Creat Ratio 16.4 RATIO (10-20); Calcium,Total 8.1 mg/dL (8.5-10.1); Chloride 104 mmol/L (98-107); Cholesterol 133 mg/dL (200); Creatinine, Serum 0.92 mg/dL (0.70-1.30); EST Glomerular Filtration Rate 92 mL/min (>60); Est Glom Filt Rate - Afr Amer 111 mL/min (>60); Estimated Creatinine Clearance 100.04 ml/min; Glucose 82 mg/dL (70-110); High Density Lipoprotein 45 mg/dL; Potassium 3.8 mmol/L (3.5-5.1); Sodium Level 138 mmol/L (136-145); Triglycerides 90 mg/dL; Very Low Density Lipoprotein 18 mg/dL (5-40)
[2017-09-26 05:13] LABS: CPK Total, Creatine Kinase 376 U/L (39-308)
[2017-09-26 05:16] LABS: International Normalized Ratio 1.1
[2017-09-26] MEDS: Aspirin 81 MG TAB.CHEW PO (08:31)
[2017-09-26] MEDS: TICAGRELOR 90 MG TABLET PO ×2 (08:31→22:28)
[2017-09-26] MEDS: Losartan Potassium 25 MG Tablet PO (08:31)
[2017-09-26] MEDS: Carvedilol 6.25 MG Tablet PO (08:31)
--- NOTE | 2017-09-26 08:39 | PCM.PN.HOSP ---
Patient Problems: Active and Suspected Problems NSTEMI (non-ST elevated myocardial infarction) (Acute) Subjective: Patient was seen and examined in CV ICU. Denies any new complaints. He is status post cardiac cath yesterday and status post stent to the circumflex artery. Post cardiac cath findings noted: 75% stenosis of the mid LAD, 90% stenosis of the proximal sake, previously placed stent in the proximal RCA, distal RCA is occluded, EF is 45% Patient is ambulating in the hallways. Denies any groin pain, dizziness or chest pain or palpitations. Objective: Physical Exam General: Alert, Oriented x3, Cooperative, No apparent distress HEENT: Atraumatic, PERRLA, EOMI, Normocephalic Oral: Moist Mucosa Neck: Supple Lungs: Clear to auscultation, Normal air movement Cardiovascular: Regular rate, Regular Rhythm, Normal S1, Normal S2, No murmurs Abdomen: Bowel Sounds Present, Soft, Non Tender, right groin dressing is intact, no hematoma or induration seen Extremities: No edema, Capillary Refill Less than 3 Seconds Skin: No rashes, No breakdown Musculoskeletal: No Tenderness to Palpation of Joints or Extremities Lymphatic: No Cervical, Supraclavicular, or Inguinal Adenopathy Neurological: Cranial nerves II-XII grossly intact, Neuro grossly intact Psych/Mental Status: Normal Affect, Appropriate Vitals/I&O's: Vital Signs Temp Pulse Resp BP Pulse Ox 98.3 F 82 10 L 112/76 95 09/26/17 04:00 09/26/17 07:25 09/26/17 07:25 09/26/17 07:25 09/26/17 07:25 Oxygen Flow Rate 2 Oxygen Delivery Method Room Air Weight: 104 kg Body Mass Index (BMI) 32.1 Intake and Output for Last 24 Hours 09/24/17 09/25/17 09/26/17 23:59 23:59 23:59 Intake Total 300 / 300 1518 / 1518 Output Total 750 / 750 800 / 800 Balance -450 / -450 718 / 718 Laboratory Results 09/25/17 15:23: Activated Clotting Time 219 H 09/25/17 15:50: Troponin I 8.89 H* 09/25/17 15:50: Total Creatine Kinase 388 H 09/25/17 15:50: WBC 10.5, RBC 4.89, Hgb 14.6, Hct 42.8, MCV 87.5, MCH 29.9, MCHC 34.1, RDW 13.4, RDW Differential 42.5, Plt Count 202, MPV 9.9 09/25/17 15:50: MRSA (PCR) Negative 09/25/17 17:36: Activated Clotting Time 180 H 09/25/17 18:30: Activated Clotting Time 153 H 09/25/17 22:10: Total Creatine Kinase 528 H 09/25/17 22:10: WBC 10.1, RBC 4.92, Hgb 14.7, Hct 42.9, MCV 87.2, MCH 29.9, MCHC 34.3, RDW 13.5, RDW Differential 42.7, Plt Count 194, MPV 10.0 09/26/17 04:30: WBC 8.2, RBC 4.78, Hgb 14.7, Hct 41.1, MCV 86.0, MCH 30.8, MCHC 35.8, RDW 13.5, RDW Differential 41.4, Plt Count 219, MPV 9.7 09/26/17 04:30: Sodium 138, Potassium 3.8, Chloride 104, Carbon Dioxide 24.0, Anion Gap 10, BUN 15, Creatinine 0.92, Estim Creat Clear Calc 100.04, Est GFR (MDRD) Af Amer 111, Est GFR (MDRD) Non-Af 92, BUN/Creatinine Ratio 16.4, Glucose 82, Calcium 8.1 L, Triglycerides 90, Cholesterol 133, LDL Cholesterol 70, VLDL Cholesterol 18, HDL Cholesterol 45 09/26/17 04:30: PT 14.0, INR 1.1 09/26/17 04:30: Total Creatine Kinase 376 H 09/26/17 08:25: Troponin I Pending Current Medications Acetaminophen (Tylenol) 650 mg PO Q6H PRN PRN PRN Reason: Non-cardiac pain (mod-severe) Last Admin: 09/25/17 20:34 Dose: 650 mg Al Hydroxide/Mg Hydroxide (Mylanta Ii) 30 ml PO Q6H PRN PRN PRN Reason: Gastric burning Aspirin (Aspirin, Baby) 81 mg PO DAILY@0800 [facility] Last Admin: 09/26/17 08:31 Dose: 81 mg Atorvastatin Calcium (Lipitor) 80 mg PO QHS [facility] Atropine Sulfate () 0.5 mg IV UD PRN PRN Reason: HR <50 bpm Carvedilol (Coreg) 6.25 mg PO BID [facility] Last Admin: 09/26/17 08:31 Dose: 6.25 mg Sodium Chloride () 1,000 mls @ 15 mls/hr IV .Q48H JOSE PRN Reason: KVO Last Admin: 09/25/17 13:40 Dose: 15 mls/hr Lorazepam (Ativan) 1 mg PO Q6H PRN PRN PRN Reason: BACK SPASMS/ANXIETY Losartan Potassium (Cozaar) 25 mg PO DAILY [facility] Last Admin: 09/26/17 08:31 Dose: 25 mg Magnesium Hydroxide (Milk Of Magnesia) 30 ml PO DAILY PRN PRN Reason: Constipation Metoclopramide HCl (Reglan) 5 mg IV Q6H PRN PRN Reason: NAUSEA/VOMITING Ondansetron HCl (Zofran) 4 mg IV Q8H PRN PRN PRN Reason: NAUSEA Psyllium Hydrophilic Mucilloid (Metamucil) 1 packet PO DAILY PRN PRN PRN Reason: CONSTIPATION Senna/Docusate Sodium (Senokot-S, Dana-Colace) 2 tablet PO BID [facility] Last Admin: 09/26/17 08:32 Dose: Not Given Sodium Chloride () 5 - 30 ml IV UD PRN PRN Reason: SALINE FLUSH Last Admin: 09/25/17 18:47 Dose: 10 ml Sodium Chloride () 500 ml IV BOLUS PRN PRN Reason: VASO-VAGAL PROTOCOL Ticagrelor (Brilinta) 90 mg PO BID [facility] Last Admin: 09/26/17 08:31 Dose: 90 mg Assessment/Plan Active and Suspected Problems NSTEMI (non-ST elevated myocardial infarction) (Acute) 52 y/o male with PMHx of CAD s/p RCA stent, hypertension, hyperlipidemia admitted with complaints of chest pain ?1 day. 1. Acute NSTEMI, (JACKY score of 5) in a patient with CAD status post stent in 2009, now status post left circumflex stent, Post cardiac cath findings noted: 75% stenosis of the mid LAD, 90% stenosis of the proximal sake, previously placed stent in the proximal RCA, distal RCA is occluded, EF is 45%. On aspirin, Brilinta, statin. Discussed with cardiology, will get another troponin, if not increasing, will discharge for patient to follow up much later for possible stent of his mid- LAD 2. Hypertension, uncontrolled, was on carvedilol 3.125 mg p.o. twice daily, increased yesterday to 6.25 mg p.o. twice daily, patient's blood pressure is systolic more than 140s this morning, would monitor after this morning's medications and adjust blood pressure pills if it remains uncontrolled 3. Hyperlipidemia, total cholesterol is 133 LDL is 70, HDL is 45, triglycerides are 90, will continue on the same dose of statin 4. DVT PPX -early ambulation 5. Possible discharge this a.m. if patient remains stable Code Visit Inpatient E&M: 63077 Subs Hosp L2
--- NOTE | 2017-09-26 08:49 | PN.CARD_ITS ---
Subjectve: Patient doing well this morning. No further chest pain. Troponin last was 8.6. Repeat troponin is pending. Right groin is clean/dry/intact, no evidence of thrills, bruits or hematoma. Creatinine and hemoglobin are within nominal limits. EKG shows normal sinus rhythm, no acute changes per Objective: Vital Signs Temp Pulse Resp BP Pulse Ox 98.3 F 82 10 L 112/76 95 09/26/17 04:00 09/26/17 07:25 09/26/17 07:25 09/26/17 07:25 09/26/17 07:25 Oxygen Flow Rate 2 Oxygen Delivery Method Room Air Weight: 229 lb 4.492 oz Body Mass Index (BMI) 32.1 Intake and Output for Last 24 Hours 09/24/17 09/25/17 09/26/17 23:59 23:59 23:59 Intake Total 300 / 300 1518 / 1518 Output Total 750 / 750 800 / 800 Balance -450 / -450 718 / 718 General: Awake, Alert, Oriented x 3 HEENT: PERRL, EOMI, Sclera Non Icteric Neck: Supple, Good ROM, No Lymph Node Enlargement Lungs: Clear to auscultation Cardiovascular: Regular Rhythm, Normal S1, Normal S2, No Murmurs, No Rubs, No Gallops Vascular: No Carotid Bruits, Normal Femoral Pulses, Normal Radial Pulses, Normal Dorsalis Pedal Pulse, Normal Posterior Tibial Pulses Abdomen: Bowel Sounds Present, Soft, Non Tender, No HSM, No Organomegaly Extremities: No Cyanosis, No Clubbing, No edema Neurological: No Focal Motor or Sensory Deficit 09/25/17 15:50: Troponin I 8.89 H* 09/25/17 15:50: WBC 10.5, RBC 4.89, Hgb 14.6, Hct 42.8, MCV 87.5, MCH 29.9, MCHC 34.1, RDW 13.4, RDW Differential 42.5, Plt Count 202, MPV 9.9 09/25/17 22:10: WBC 10.1, RBC 4.92, Hgb 14.7, Hct 42.9, MCV 87.2, MCH 29.9, MCHC 34.3, RDW 13.5, RDW Differential 42.7, Plt Count 194, MPV 10.0 09/26/17 04:30: WBC 8.2, RBC 4.78, Hgb 14.7, Hct 41.1, MCV 86.0, MCH 30.8, MCHC 35.8, RDW 13.5, RDW Differential 41.4, Plt Count 219, MPV 9.7 09/26/17 04:30: Sodium 138, Potassium 3.8, Chloride 104, Carbon Dioxide 24.0, Anion Gap 10, BUN 15, Creatinine 0.92, Est GFR (MDRD) Af Amer 111, Est GFR (MDRD ) Non-Af 92, BUN/Creatinine Ratio 16.4, Glucose 82, Calcium 8.1 L, Triglycerides 90, Cholesterol 133, LDL Cholesterol 70, VLDL Cholesterol 18, HDL Cholesterol 45 09/26/17 04:30: PT 14.0, INR 1.1 Rhythm: EKG: ECHO: Stress Test: Cardiac Cath: PCI: CT Surgery: Holter monitor: EPS: PPM: CXR: Chest CT Scan: Assessment/Plan 1. Coronary artery disease: The patient was found to have an occluded distal RCA with significant akinetic proximal inferior hypokinesis consistent with his previous myocardial infarction several years ago. Patient had adequate left right collaterals so. Patient has remaining distal LAD stenosis of approximately 70%. This was left for medical management.we felt this was most likely not the culprit artery. The patient had a critical stenosis in his mid left circumflex which was treated with a drug-eluting stent At this point I would recommend continuing the patient on aspirin, Brilinta, and Coreg. We will await his final troponin to determine if his troponins are a sending her descending. His CKs have peaked and are coming down. If the patient has no further chest pain, no further arrhythmias, he may be discharged home later this afternoon. If the patient has no further anginal symptoms at home we will obtain a treadmill echocardiogram or treadmill MPI in 2 weeks time to assess the need for intervention of his distal LAD. If he has anterior apical ischemia, we will return in 2 weeks time for intervention of his distal LAD. If the patient has chest pain between now and then I would have a low threshold for the patient to return in 1-2 weeks time for repeat angiogram and angioplasty of his distal LAD. 2. Hyperlipidemia: Continue statin based medication. His LDL should be less than 70. Repeat lipid profile in 4-6 weeks time. 3. Follow-up with Dr. Costello going forward. Discussed with Dr. Ballard. Code Visit Inpatient E&M: 57747 Subs Hosp L2
--- NOTE | 2017-09-26 08:51 | PN_ITS ---
Patient Problems: Active and Suspected Problems NSTEMI (non-ST elevated myocardial infarction) (Acute) Subjective: Patient was seen and examined in CV ICU. Denies any new complaints. He is status post cardiac cath yesterday and status post stent to the circumflex artery. Post cardiac cath findings noted: 75% stenosis of the mid LAD, 90% stenosis of the proximal sake, previously placed stent in the proximal RCA, distal RCA is occluded, EF is 45% Patient is ambulating in the hallways. Denies any groin pain, dizziness or chest pain or palpitations. Objective: Physical Exam General: Alert, Oriented x3, Cooperative, No apparent distress HEENT: Atraumatic, PERRLA, EOMI, Normocephalic Oral: Moist Mucosa Neck: Supple Lungs: Clear to auscultation, Normal air movement Cardiovascular: Regular rate, Regular Rhythm, Normal S1, Normal S2, No murmurs Abdomen: Bowel Sounds Present, Soft, Non Tender, right groin dressing is intact , no hematoma or induration seen Extremities: No edema, Capillary Refill Less than 3 Seconds Skin: No rashes, No breakdown Musculoskeletal: No Tenderness to Palpation of Joints or Extremities Lymphatic: No Cervical, Supraclavicular, or Inguinal Adenopathy Neurological: Cranial nerves II-XII grossly intact, Neuro grossly intact Psych/Mental Status: Normal Affect, Appropriate Vitals/I&O's: Vital Signs Temp Pulse Resp BP Pulse Ox 98.3 F 82 10 L 112/76 95 09/26/17 04:00 09/26/17 07:25 09/26/17 07:25 09/26/17 07:25 09/26/17 07:25 Oxygen Flow Rate 2 Oxygen Delivery Method Room Air Weight: 104 kg Body Mass Index (BMI) 32.1 Intake and Output for Last 24 Hours 09/24/17 09/25/17 09/26/17 23:59 23:59 23:59 Intake Total 300 / 300 1518 / 1518 Output Total 750 / 750 800 / 800 Balance -450 / -450 718 / 718 Laboratory Results 09/25/17 15:23: Activated Clotting Time 219 H 09/25/17 15:50: Troponin I 8.89 H* 09/25/17 15:50: Total Creatine Kinase 388 H 09/25/17 15:50: WBC 10.5, RBC 4.89, Hgb 14.6, Hct 42.8, MCV 87.5, MCH 29.9, MCHC 34.1, RDW 13.4, RDW Differential 42.5, Plt Count 202, MPV 9.9 09/25/17 15:50: MRSA (PCR) Negative 09/25/17 17:36: Activated Clotting Time 180 H 09/25/17 18:30: Activated Clotting Time 153 H 09/25/17 22:10: Total Creatine Kinase 528 H 09/25/17 22:10: WBC 10.1, RBC 4.92, Hgb 14.7, Hct 42.9, MCV 87.2, MCH 29.9, MCHC 34.3, RDW 13.5, RDW Differential 42.7, Plt Count 194, MPV 10.0 09/26/17 04:30: WBC 8.2, RBC 4.78, Hgb 14.7, Hct 41.1, MCV 86.0, MCH 30.8, MCHC 35.8, RDW 13.5, RDW Differential 41.4, Plt Count 219, MPV 9.7 09/26/17 04:30: Sodium 138, Potassium 3.8, Chloride 104, Carbon Dioxide 24.0, Anion Gap 10, BUN 15, Creatinine 0.92, Estim Creat Clear Calc 100.04, Est GFR ( MDRD) Af Amer 111, Est GFR (MDRD) Non-Af 92, BUN/Creatinine Ratio 16.4, Glucose 82, Calcium 8.1 L, Triglycerides 90, Cholesterol 133, LDL Cholesterol 70, VLDL Cholesterol 18, HDL Cholesterol 45 09/26/17 04:30: PT 14.0, INR 1.1 09/26/17 04:30: Total Creatine Kinase 376 H 09/26/17 08:25: Troponin I Pending Current Medications Acetaminophen (Tylenol) 650 mg PO Q6H PRN PRN PRN Reason: Non-cardiac pain (mod-severe) Last Admin: 09/25/17 20:34 Dose: 650 mg Al Hydroxide/Mg Hydroxide (Mylanta Ii) 30 ml PO Q6H PRN PRN PRN Reason: Gastric burning Aspirin (Aspirin, Baby) 81 mg PO DAILY@0800 [facility] Last Admin: 09/26/17 08:31 Dose: 81 mg Atorvastatin Calcium (Lipitor) 80 mg PO QHS [facility] Atropine Sulfate () 0.5 mg IV UD PRN PRN Reason: HR <50 bpm Carvedilol (Coreg) 6.25 mg PO BID [facility] Last Admin: 09/26/17 08:31 Dose: 6.25 mg Sodium Chloride () 1,000 mls @ 15 mls/hr IV .Q48H JOSE PRN Reason: KVO Last Admin: 09/25/17 13:40 Dose: 15 mls/hr Lorazepam (Ativan) 1 mg PO Q6H PRN PRN PRN Reason: BACK SPASMS/ANXIETY Losartan Potassium (Cozaar) 25 mg PO DAILY [facility] Last Admin: 09/26/17 08:31 Dose: 25 mg Magnesium Hydroxide (Milk Of Magnesia) 30 ml PO DAILY PRN PRN Reason: Constipation Metoclopramide HCl (Reglan) 5 mg IV Q6H PRN PRN Reason: NAUSEA/VOMITING Ondansetron HCl (Zofran) 4 mg IV Q8H PRN PRN PRN Reason: NAUSEA Psyllium Hydrophilic Mucilloid (Metamucil) 1 packet PO DAILY PRN PRN PRN Reason: CONSTIPATION Senna/Docusate Sodium (Senokot-S, Dana-Colace) 2 tablet PO BID [facility] Last Admin: 09/26/17 08:32 Dose: Not Given Sodium Chloride () 5 - 30 ml IV UD PRN PRN Reason: SALINE FLUSH Last Admin: 09/25/17 18:47 Dose: 10 ml Sodium Chloride () 500 ml IV BOLUS PRN PRN Reason: VASO-VAGAL PROTOCOL Ticagrelor (Brilinta) 90 mg PO BID [facility] Last Admin: 09/26/17 08:31 Dose: 90 mg Assessment/Plan Active and Suspected Problems NSTEMI (non-ST elevated myocardial infarction) (Acute) 52 y/o male with PMHx of CAD s/p RCA stent, hypertension, hyperlipidemia admitted with complaints of chest pain ?1 day. 1. Acute NSTEMI, (JACKY score of 5) in a patient with CAD status post stent in 2009, now status post left circumflex stent, Post cardiac cath findings noted: 75% stenosis of the mid LAD, 90% stenosis of the proximal sake, previously placed stent in the proximal RCA, distal RCA is occluded, EF is 45%. On aspirin, Brilinta, statin. Discussed with cardiology, will get another troponin, if not increasing, will discharge for patient to follow up much later for possible stent of his mid- LAD 2. Hypertension, uncontrolled, was on carvedilol 3.125 mg p.o. twice daily, increased yesterday to 6.25 mg p.o. twice daily, patient's blood pressure is systolic more than 140s this morning, would monitor after this morning's medications and adjust blood pressure pills if it remains uncontrolled 3. Hyperlipidemia, total cholesterol is 133 LDL is 70, HDL is 45, triglycerides are 90, will continue on the same dose of statin 4. DVT PPX -early ambulation 5. Possible discharge this a.m. if patient remains stable Code Visit Inpatient E&M: 91067 Subs Hosp L2
--- NOTE | 2017-09-26 10:04 | CRPHASE1 ---
Patient Data/Charges Former Patient:: Phase I Composing Room Machinist:: Raul Lopez Admit Date:: 09/25/17 Phase I Charge:: Level I - Education Risk Factors/Lifestyle Smoking Status: Never smoker Hx Hypertension: Yes - ON MEDS Hx Diabetes Mellitus Type 2: No Hx Metabolic Disorders: No Hx Dyslipidemia: Yes - ON LIPITOR Height: 1.8 m Weight:: 104.326 kg BMI: 32.1 Stress: Work-related ETOH: No Caffeine: Yes Substance Abuse: No Family History: Heart Disease, Hypertension Past Cardiac Illness: Myocardial Infarction - 2009, Coronary Artery Bypass Graft Laboratory Values: Cardiac Rehab Phase I Labs Triglycerides 90 mg/dL (-199) 09/26/17 04:30 Cholesterol 133 mg/dL (200) 09/26/17 04:30 LDL Cholesterol 70 mg/dL (0-130) 09/26/17 04:30 HDL Cholesterol 45 mg/dL (40-) 09/26/17 04:30 Phase I Education Given On:: [place], Nutrition, Antiplatelet medication, CHF Issues Affecting Care:: None Knowledge of Condition:: Yes Hospital Course Pain Description: Sharp, Tightness, Pressure Medical/Surgical History AR:: Yes - 2009 Diabetes:: No Hypertension:: Yes - ON MEDS Dyslipidemia:: Yes - ON MEDS GI:: No GERD:: No Cancer:: No Renal:: No Thyroid:: No Depression:: No Anxiety:: No CABG: Yes Discharge/Home/Social Eval Discharge Disposition: Home Marital Status: Patient Lives With:: 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
--- NOTE | 2017-09-26 10:09 | CRPHASE1_ITS ---
Patient Data/Charges Former Patient:: Phase I Bullard Operator:: Raul Lopez Admit Date:: 09/25/17 Phase I Charge:: Level I - Education Risk Factors/Lifestyle Smoking Status: Never smoker Hx Hypertension: Yes - ON MEDS Hx Diabetes Mellitus Type 2: No Hx Metabolic Disorders: No Hx Dyslipidemia: Yes - ON LIPITOR Height: 1.8 m Weight:: 104.326 kg BMI: 32.1 Stress: Work-related ETOH: No Caffeine: Yes Substance Abuse: No Family History: Heart Disease, Hypertension Past Cardiac Illness: Myocardial Infarction - 2009, Coronary Artery Bypass Graft Laboratory Values: Cardiac Rehab Phase I Labs Triglycerides 90 mg/dL (-199) 09/26/17 04:30 Cholesterol 133 mg/dL (200) 09/26/17 04:30 LDL Cholesterol 70 mg/dL (0-130) 09/26/17 04:30 HDL Cholesterol 45 mg/dL (40-) 09/26/17 04:30 Phase I Education Given On:: [place], Nutrition, Antiplatelet medication, CHF Issues Affecting Care:: None Knowledge of Condition:: Yes Hospital Course Pain Description: Sharp, Tightness, Pressure Medical/Surgical History [place]:: Yes - 2009 Diabetes:: No Hypertension:: Yes - ON MEDS Dyslipidemia:: Yes - ON MEDS GI:: No GERD:: No Cancer:: No Renal:: No Thyroid:: No Depression:: No Anxiety:: No CABG: Yes Discharge/Home/Social Eval Discharge Disposition: Home Marital Status: Patient Lives With:: 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
--- NOTE | 2017-09-26 10:09 | CRPH1.INSTRU ---
General Education CAD and cardiac anatomy and function:: Patient communicates acknowledgment Explanation of diagnoses and procedures:: Patient communicates acknowledgment Sign/Symptoms of [place]:: Patient communicates acknowledgment Antiplatelet therapy: Patient communicates acknowledgment Proper use of NTG-SL: Patient communicates acknowledgment Emergency procedures and activation of EMS: Patient communicates acknowledgment Compliance of all prescribed medications: Patient communicates acknowledgment Smoking Patient Nicotine/Smoking Risk Factors Are:: Never smoked Dyslipidemia Recommendations Include:: Lipid profile not available Dyslipidemia Response Code:: Patient communicates acknowledgment - ON LIPITOR Overweight/Obesity Patient Overweight/Obesity Risk Factors Are:: Overweight = 26-29 Recommendations Include:: Weight loss of 5-10%, Reduced calorie diet, Exercise 5-7 times/week Overweight/Obesity:: Patient communicates acknowledgment Hypertension Recommendations Include:: Maintain BP <130/85, Decrease/maintain normal body weight Hypertension:: Patient communicates acknowledgment - ON MEDS Heart Disease Patient Heart Disease Risk Factors Are:: Family history of heart disease < 65 years old, Previous cardiac event Heart Disease Response Code:: Patient communicates acknowledgment - ON MOM AND DAD'S SIDE Diabetes Patient Diabetes Risk Factors Are:: No documented hx of diabetes Metabolic Syndrome Patient Metabolic Syndrome Risk Factors Are [3 of 5]:: Waist circumference > 35 [female] or 40 [male], Hypertension Metabolic Syndrome Response Code:: Patient communicates acknowledgment Sedentary Patient Sedentary Risk Factors Are:: Lack of regular exercise Recommendations Include:: Benefits of regular exercise, Discussed home walking program Sedentary Response Code:: Patient communicates acknowledgment Stress Stress Response Code:: Patient communicates acknowledgment
--- NOTE | 2017-09-26 10:12 | CRPH1.INST_ITS ---
General Education CAD and cardiac anatomy and function:: Patient communicates acknowledgment Explanation of diagnoses and procedures:: Patient communicates acknowledgment Sign/Symptoms of [place]:: Patient communicates acknowledgment Antiplatelet therapy: Patient communicates acknowledgment Proper use of NTG-SL: Patient communicates acknowledgment Emergency procedures and activation of EMS: Patient communicates acknowledgment Compliance of all prescribed medications: Patient communicates acknowledgment Smoking Patient Nicotine/Smoking Risk Factors Are:: Never smoked Dyslipidemia Recommendations Include:: Lipid profile not available Dyslipidemia Response Code:: Patient communicates acknowledgment - ON LIPITOR Overweight/Obesity Patient Overweight/Obesity Risk Factors Are:: Overweight = 26-29 Recommendations Include:: Weight loss of 5-10%, Reduced calorie diet, Exercise 5 -7 times/week Overweight/Obesity:: Patient communicates acknowledgment Hypertension Recommendations Include:: Maintain BP <130/85, Decrease/maintain normal body weight Hypertension:: Patient communicates acknowledgment - ON MEDS Heart Disease Patient Heart Disease Risk Factors Are:: Family history of heart disease < 65 years old, Previous cardiac event Heart Disease Response Code:: Patient communicates acknowledgment - ON MOM AND DAD'S SIDE Diabetes Patient Diabetes Risk Factors Are:: No documented hx of diabetes Metabolic Syndrome Patient Metabolic Syndrome Risk Factors Are [3 of 5]:: Waist circumference > 35 [female] or 40 [male], Hypertension Metabolic Syndrome Response Code:: Patient communicates acknowledgment Sedentary Patient Sedentary Risk Factors Are:: Lack of regular exercise Recommendations Include:: Benefits of regular exercise, Discussed home walking program Sedentary Response Code:: Patient communicates acknowledgment Stress Stress Response Code:: Patient communicates acknowledgment
--- NOTE | 2017-09-26 10:16 | PCM.PN.CARD ---
Subjectve: The patient is awake and alert. He denies any ongoing chest or upper extremity discomfort. He has had no complaint of shortness of breath or dyspnea. Objective: Vital Signs Temp Pulse Resp BP Pulse Ox 98.4 F 81 16 119/72 98 09/26/17 09:00 09/26/17 09:00 09/26/17 09:00 09/26/17 09:00 09/26/17 09:00 Oxygen Flow Rate 2 Oxygen Delivery Method Room Air Weight: 230 lb Body Mass Index (BMI) 32.1 Intake and Output for Last 24 Hours 09/24/17 09/25/17 09/26/17 23:59 23:59 23:59 Intake Total 300 / 300 1518 / 1518 Output Total 750 / 750 800 / 800 Balance -450 / -450 718 / 718 General: Awake, Alert, Oriented x 3, Cooperative, No Acute Distress, Obese Neck: No JVD Lungs: Clear to auscultation Cardiovascular: Regular Rhythm, Normal S1, Normal S2 Vascular: No Carotid Bruits, Normal Femoral Pulses Abdomen: Bowel Sounds Present, Soft, Non Tender Extremities: No Cyanosis, No Clubbing, No edema Neurological: No Focal Motor or Sensory Deficit 09/25/17 15:50: Troponin I 8.89 H* 09/25/17 15:50: WBC 10.5, RBC 4.89, Hgb 14.6, Hct 42.8, MCV 87.5, MCH 29.9, MCHC 34.1, RDW 13.4, RDW Differential 42.5, Plt Count 202, MPV 9.9 09/25/17 22:10: WBC 10.1, RBC 4.92, Hgb 14.7, Hct 42.9, MCV 87.2, MCH 29.9, MCHC 34.3, RDW 13.5, RDW Differential 42.7, Plt Count 194, MPV 10.0 09/26/17 04:30: WBC 8.2, RBC 4.78, Hgb 14.7, Hct 41.1, MCV 86.0, MCH 30.8, MCHC 35.8, RDW 13.5, RDW Differential 41.4, Plt Count 219, MPV 9.7 09/26/17 04:30: Sodium 138, Potassium 3.8, Chloride 104, Carbon Dioxide 24.0, Anion Gap 10, BUN 15, Creatinine 0.92, Est GFR (MDRD) Af Amer 111, Est GFR (MDRD) Non-Af 92, BUN/Creatinine Ratio 16.4, Glucose 82, Calcium 8.1 L, Triglycerides 90, Cholesterol 133, LDL Cholesterol 70, VLDL Cholesterol 18, HDL Cholesterol 45 09/26/17 04:30: PT 14.0, INR 1.1 09/26/17 08:25: Troponin I 8.95 H* Rhythm: sinus rhythm EKG: sinus rhythm; RBBB Assessment/Plan 1. Acute non-ST segment elevation SC The patient presents with symptoms concerning for unstable angina pectoris and abnormal troponin I levels compatible with an acute non-ST segment elevation SC. He has been treated medically. He is now status post diagnostic cardiac catheterization. He has been noted to have left ventricular regional wall motion abnormalities compatible to previous inferior SC. His left main coronary artery is patent, his LAD demonstrated a mid approximate 75% stenosis, his LCx demonstrated a proximal to mid 90% stenosis, his RCA demonstrated a proximal patent stent but his distal RCA was occluded with the remainder the system filling late, faintly, and partially-also from [id number] collateral flow. He subsequently underwent LCx PTCA/stent. He may require staged PCI of the LAD. There was no attempt to revascularize the RCA system. He is without ongoing symptoms at this time. His rhythm remains sinus. His cardiac enzymes have demonstrated fluctuations in his troponin I levels. They are being repeated. His ECG is demonstrated no new acute changes. If the patient remains symptomatically and hemodynamically stable, and depending upon his objective parameters, he will be allowed to transition from the CVICU to the PCU for continued evaluation care. 2. CAD The patient has been diagnosed with CAD as noted in the past. His evaluation is as noted above. 3. Status post PTCA/stent The patient he received an RCA PTCA/stent in the past. He is now status post and LCx PTCA/stent. Again he will continue medical management and follow-up. Comment: The patient's case has been discussed and reviewed with the patient and Dr. Lopez. This note was generated with Any.DOation software. Every effort was made to ensure accuracy, however, computerized cabinetmaker helper mistakes may persist.
--- NOTE | 2017-09-26 10:21 | PN.CARD_ITS ---
Subjectve: The patient is awake and alert. He denies any ongoing chest or upper extremity discomfort. He has had no complaint of shortness of breath or dyspnea. Objective: Vital Signs Temp Pulse Resp BP Pulse Ox 98.4 F 81 16 119/72 98 09/26/17 09:00 09/26/17 09:00 09/26/17 09:00 09/26/17 09:00 09/26/17 09:00 Oxygen Flow Rate 2 Oxygen Delivery Method Room Air Weight: 230 lb Body Mass Index (BMI) 32.1 Intake and Output for Last 24 Hours 09/24/17 09/25/17 09/26/17 23:59 23:59 23:59 Intake Total 300 / 300 1518 / 1518 Output Total 750 / 750 800 / 800 Balance -450 / -450 718 / 718 General: Awake, Alert, Oriented x 3, Cooperative, No Acute Distress, Obese Neck: No JVD Lungs: Clear to auscultation Cardiovascular: Regular Rhythm, Normal S1, Normal S2 Vascular: No Carotid Bruits, Normal Femoral Pulses Abdomen: Bowel Sounds Present, Soft, Non Tender Extremities: No Cyanosis, No Clubbing, No edema Neurological: No Focal Motor or Sensory Deficit 09/25/17 15:50: Troponin I 8.89 H* 09/25/17 15:50: WBC 10.5, RBC 4.89, Hgb 14.6, Hct 42.8, MCV 87.5, MCH 29.9, MCHC 34.1, RDW 13.4, RDW Differential 42.5, Plt Count 202, MPV 9.9 09/25/17 22:10: WBC 10.1, RBC 4.92, Hgb 14.7, Hct 42.9, MCV 87.2, MCH 29.9, MCHC 34.3, RDW 13.5, RDW Differential 42.7, Plt Count 194, MPV 10.0 09/26/17 04:30: WBC 8.2, RBC 4.78, Hgb 14.7, Hct 41.1, MCV 86.0, MCH 30.8, MCHC 35.8, RDW 13.5, RDW Differential 41.4, Plt Count 219, MPV 9.7 09/26/17 04:30: Sodium 138, Potassium 3.8, Chloride 104, Carbon Dioxide 24.0, Anion Gap 10, BUN 15, Creatinine 0.92, Est GFR (MDRD) Af Amer 111, Est GFR (MDRD ) Non-Af 92, BUN/Creatinine Ratio 16.4, Glucose 82, Calcium 8.1 L, Triglycerides 90, Cholesterol 133, LDL Cholesterol 70, VLDL Cholesterol 18, HDL Cholesterol 45 09/26/17 04:30: PT 14.0, INR 1.1 09/26/17 08:25: Troponin I 8.95 H* Rhythm: sinus rhythm EKG: sinus rhythm; RBBB Assessment/Plan 1. Acute non-ST segment elevation SC The patient presents with symptoms concerning for unstable angina pectoris and abnormal troponin I levels compatible with an acute non-ST segment elevation SC. He has been treated medically. He is now status post diagnostic cardiac catheterization. He has been noted to have left ventricular regional wall motion abnormalities compatible to previous inferior SC. His left main coronary artery is patent, his LAD demonstrated a mid approximate 75% stenosis, his LCx demonstrated a proximal to mid 90% stenosis, his RCA demonstrated a proximal patent stent but his distal RCA was occluded with the remainder the system filling late, faintly, and partially- also from [id number] collateral flow. He subsequently underwent LCx PTCA/ stent. He may require staged PCI of the LAD. There was no attempt to revascularize the RCA system. He is without ongoing symptoms at this time. His rhythm remains sinus. His cardiac enzymes have demonstrated fluctuations in his troponin I levels. They are being repeated. His ECG is demonstrated no new acute changes. If the patient remains symptomatically and hemodynamically stable, and depending upon his objective parameters, he will be allowed to transition from the CVICU to the PCU for continued evaluation care. 2. CAD The patient has been diagnosed with CAD as noted in the past. His evaluation is as noted above. 3. Status post PTCA/stent The patient he received an RCA PTCA/stent in the past. He is now status post and LCx PTCA/stent. Again he will continue medical management and follow-up. Comment: The patient's case has been discussed and reviewed with the patient and Dr. Lopez. This note was generated with BuddyBetation software. Every effort was made to ensure accuracy, however, computerized non destructive tester mistakes may persist.
--- NOTE | 2017-09-26 10:48 | CASEMGMT ---
Intro role of CM to patient's in room (pt was on phone with his employer). No dc needs identified. [facility] given and explained. Krish MCMAHONN RN ACM
--- NOTE | 2017-09-26 15:34 | EKG12_ITS ---
Test Reason : AM EKG Blood Pressure : / mmHG Vent. Rate : 082 BPM Atrial Rate : 082 BPM P-R Int : 154 ms QRS Dur : 140 ms QT Int : 404 ms P-R-T Axes : 043 -33 -20 degrees QTc Int : 472 ms Normal sinus rhythm Right bundle branch block Inferior infarct , age undetermined Abnormal ECG When compared with ECG of 25-SEP-2017 15:53, MANUAL COMPARISON REQUIRED, DATA IS UNCONFIRMED Confirmed by JUANI CORDERO ([id number]), slot editor ELMER NIXON ([id number]) on 09/27/2017 1:49:57 PM Referred By: DELMI Confirmed By:JUANI CORDERO
--- NOTE | 2017-09-26 16:40 | NURSING ---
report called to [facility] for transfer to room 120 transferred per wheelchair with belongings
[2017-09-26] MEDS: Atorvastatin Calcium 80 MG Tablet PO (22:28)
[2017-09-26] MEDS: Carvedilol 12.5 MG Tablet PO (22:28)
[2017-09-26] MEDS: Senna/Docusate Sodium 1 Tablet 2 TABLET PO (22:29)
[2017-09-27 03:05] VITALS: PULSE 73
[2017-09-27 04:03] VITALS: BP 114/72; PULSE 70; RESP 16; TEMP 36.9; O2SAT 97
--- NOTE | 2017-09-27 05:55 | EKG12_ITS ---
Test Reason : AM EKG Blood Pressure : / mmHG Vent. Rate : 069 BPM Atrial Rate : 069 BPM P-R Int : 154 ms QRS Dur : 136 ms QT Int : 420 ms P-R-T Axes : 041 -09 -14 degrees QTc Int : 450 ms Normal sinus rhythm Right bundle branch block Inferior infarct , age undetermined Abnormal ECG Confirmed by MARTHA RETANA, ANA ([id number]), technical writer and editor ELMER NIXON ([id number]) on 09/28/2017 12:00:26 PM Referred By: DELMI Confirmed By:ANA THOMAS MD
[2017-09-27 06:56] VITALS: PULSE 73
[2017-09-27 07:15] LABS: Anion Gap 8 (5-15); BUN 19 mg/dL (7-18); BUN/Creat Ratio 19.2 RATIO (10-20); Calcium,Total 8.3 mg/dL (8.5-10.1); Chloride 107 mmol/L (98-107); Creatinine, Serum 0.99 mg/dL (0.70-1.30); EST Glomerular Filtration Rate 84 mL/min (>60); Est Glom Filt Rate - Afr Amer 102 mL/min (>60); Estimated Creatinine Clearance 92.96 ml/min; Glucose 110 mg/dL (70-110); Sodium Level 140 mmol/L (136-145)
[2017-09-27 07:30] VITALS: O2SAT 93
[2017-09-27 09:55] VITALS: BP 126/77; PULSE 82; RESP 16; TEMP 36.7; O2SAT 95
[2017-09-27] MEDS: Losartan Potassium 25 MG Tablet PO (10:01)
[2017-09-27] MEDS: Aspirin 81 MG TAB.CHEW PO (10:02)
[2017-09-27] MEDS: TICAGRELOR 90 MG TABLET PO (10:02)
[2017-09-27] MEDS: Carvedilol 12.5 MG Tablet PO (10:02)
[2017-09-27] MEDS: Senna/Docusate Sodium 1 Tablet 2 TABLET PO (10:02)
--- NOTE | 2017-09-27 10:06 | PCM.DC ---
- Discharge Diagnoses Current Active Problems: Current Active and Chronic Problems NSTEMI (non-ST elevated myocardial infarction) (Acute) CAD (coronary artery disease) (Chronic) S/P PTCA (percutaneous transluminal coronary angioplasty) (Chronic) Reason(s) for Visit for Discharge Instructions: Chest pain You will use the following diet at home:: Cardiac Your food should be the consistency of: Regular Your liquids should be the consistency of: Regular/Thin Discharge Activity: Return to Normal Activity Allergies/Adverse Reactions: Allergies No Known Allergies Allergy (Verified 09/25/17 10:36) Medications to take at Discharge Aspirin 81 mg PO DAILY 02/06/17 Atorvastatin Calcium [Lipitor] 40 mg PO QHS 02/06/17 Carvedilol [Coreg (Beta Maddi)] 12.5 mg PO BID #60 tab 09/27/17 Losartan Potassium [Cozaar] 25 mg PO DAILY #30 tab 09/27/17 Ticagrelor [Brilinta] 90 mg PO BID #60 tab 09/27/17 The following prescriptions were given: Losartan Potassium [Cozaar] 25 mg PO DAILY #30 tab Carvedilol [Coreg (Beta Maddi)] 12.5 mg PO BID #60 tab Ticagrelor [Brilinta] 90 mg PO BID #60 tab Primary Care Physician: Isis Olivera DO [NON-STAFF] - Please follow up with your Primary Care Physician in: within 2 weeks Please Follow Up With: Raul Lopez MD When: within 2 weeks Proposed Discharge Date: 09/27/17
--- NOTE | 2017-09-27 10:07 | PCM.DC.SUM ---
Discharge Date and Diagnosis Date of Admission: 09/25/17 Date of Discharge: 09/27/17 - Primary Discharge Diagnosis Active and Suspected Problems NSTEMI (non-ST elevated myocardial infarction) (Acute) - Secondary Discharge Diagnosis Chronic Problems CAD (coronary artery disease) (Chronic) S/P PTCA (percutaneous transluminal coronary angioplasty) (Chronic) Hospital Course and Treatment Imaging Results: Clinical Impression(s) from Imaging Studies Chest X-Ray 09/25/17 10:34 IMPRESSION: No acute abnormality is seen. Electronically Signed: Domingo Reuda MD at 11:00 EST Tel [phone], Service support , Cardiology - Dr. Lopez Operations: None Procedures: 2-D Echocardiogram, Cardiac catheterization Summary of Care Provided: 52 y/o male with PMHx of CAD s/p RCA stent, hypertension, hyperlipidemia admitted with complaints of chest pain ?1 day. 1. Acute NSTEMI, (JACKY score of 5) in a patient with CAD status post stent in 2009, now status post left circumflex stent, Post cardiac cath findings were as follows: 75% stenosis of the mid LAD, 90% stenosis of the proximal circumflex , previously placed stent in the proximal RCA, distal RCA is occluded, EF is 45%. On aspirin, Brilinta, statin. Patient stayed another day to make sure he did not have persistent elevation of troponins or worsening chest pain from the circumflex lesion. Will need to follow-up in the outpatient with cardiology for intervention on his mid LAD lesion. 2. Hypertension, uncontrolled, was on carvedilol 3.125 mg p.o. twice daily, carvedilol was increased to 12.5mg po bid 3. Hyperlipidemia, total cholesterol is 133 LDL is 70, HDL is 45, triglycerides are 90, will continue on the same dose of statin Discharge Diet: Low fat/ Low Cholesterol, 2000 mg Sodium Diet Discharge Activity: Return to Normal Activity Home Medications: Medications to take at Discharge Aspirin 81 mg PO DAILY 02/06/17 Atorvastatin Calcium [Lipitor] 40 mg PO QHS 02/06/17 Carvedilol [Coreg (Beta Maddi)] 12.5 mg PO BID #60 tab 09/27/17 Losartan Potassium [Cozaar] 25 mg PO DAILY #30 tab 09/27/17 Ticagrelor [Brilinta] 90 mg PO BID #60 tab 09/27/17 Following Prescrptions Were Given to Patient: Losartan Potassium [Cozaar] 25 mg PO DAILY #30 tab Carvedilol [Coreg (Beta Maddi)] 12.5 mg PO BID #60 tab Ticagrelor [Brilinta] 90 mg PO BID #60 tab Primary Care Physician: Isis Olivera DO [NON-STAFF] - Please follow up with your Primary Care Physician in: within 2 weeks Please Follow Up With: Raul Lopez MD When: within 2 weeks Disposition: Home Minutes spent on discharge:: 25 Patient Condition:: Stable Meaningful Use Info Meaningful Use Diagnoses (Choose all that apply): AMI - AMI Aspirin given w/in 24hrs of arrival?: Yes ASA at discharge?: Yes Statins at discharge?: Yes Los/ARB at discharge?: Yes Beta Maddi at discharge?: Yes Done w/ Acute IA measure.: Yes Code Visit Inpatient E&M: 86860 Disch Hosp
--- NOTE | 2017-09-27 10:12 | DS.PCM_ITS ---
Discharge Date and Diagnosis Date of Admission: 09/25/17 Date of Discharge: 09/27/17 - Primary Discharge Diagnosis Active and Suspected Problems NSTEMI (non-ST elevated myocardial infarction) (Acute) - Secondary Discharge Diagnosis Chronic Problems CAD (coronary artery disease) (Chronic) S/P PTCA (percutaneous transluminal coronary angioplasty) (Chronic) Hospital Course and Treatment Imaging Results: Clinical Impression(s) from Imaging Studies Chest X-Ray 09/25/17 10:34 IMPRESSION: No acute abnormality is seen. Electronically Signed: Domingo Rueda MD at 11:00 EST Tel [phone], Service support , Cardiology - Dr. Lopez Operations: None Procedures: 2-D Echocardiogram, Cardiac catheterization Summary of Care Provided: 52 y/o male with PMHx of CAD s/p RCA stent, hypertension, hyperlipidemia admitted with complaints of chest pain ?1 day. 1. Acute NSTEMI, (JACKY score of 5) in a patient with CAD status post stent in 2009, now status post left circumflex stent, Post cardiac cath findings were as follows: 75% stenosis of the mid LAD, 90% stenosis of the proximal circumflex , previously placed stent in the proximal RCA, distal RCA is occluded, EF is 45%. On aspirin, Brilinta, statin. Patient stayed another day to make sure he did not have persistent elevation of troponins or worsening chest pain from the circumflex lesion. Will need to follow-up in the outpatient with cardiology for intervention on his mid LAD lesion. 2. Hypertension, uncontrolled, was on carvedilol 3.125 mg p.o. twice daily, carvedilol was increased to 12.5mg po bid 3. Hyperlipidemia, total cholesterol is 133 LDL is 70, HDL is 45, triglycerides are 90, will continue on the same dose of statin Discharge Diet: Low fat/ Low Cholesterol, 2000 mg Sodium Diet Discharge Activity: Return to Normal Activity Home Medications: Medications to take at Discharge Aspirin 81 mg PO DAILY 02/06/17 Atorvastatin Calcium [Lipitor] 40 mg PO QHS 02/06/17 Carvedilol [Coreg (Beta Maddi)] 12.5 mg PO BID #60 tab 09/27/17 Losartan Potassium [Cozaar] 25 mg PO DAILY #30 tab 09/27/17 Ticagrelor [Brilinta] 90 mg PO BID #60 tab 09/27/17 Following Prescrptions Were Given to Patient: Losartan Potassium [Cozaar] 25 mg PO DAILY #30 tab Carvedilol [Coreg (Beta Maddi)] 12.5 mg PO BID #60 tab Ticagrelor [Brilinta] 90 mg PO BID #60 tab Primary Care Physician: Isis Olivera DO [NON-STAFF] - Please follow up with your Primary Care Physician in: within 2 weeks Please Follow Up With: Raul Lopez MD When: within 2 weeks Disposition: Home Minutes spent on discharge:: 25 Patient Condition:: Stable Meaningful Use Info Meaningful Use Diagnoses (Choose all that apply): AMI - AMI Aspirin given w/in 24hrs of arrival?: Yes ASA at discharge?: Yes Statins at discharge?: Yes Los/ARB at discharge?: Yes Beta Maddi at discharge?: Yes Done w/ Acute [place] measure.: Yes Code Visit Inpatient E&M: [id number] Disch Hosp
== END 2017-09-27 11:35 | disposition home or self-care (01) | DRG 247 ==
LOC: ED 11:28 → PCU 12:01 → ICU 09-26 05:52 → PCU 09-26 07:59 → ICU 09-26 15:59 → PCU 09-26 17:09
PROVIDERS: Internal Medicine Cardiovascular Disease; Admitting Provider Internal Medicine; Emergency Provider Emergency Medicine; Family Provider Internal Medicine; PCP Internal Medicine; Visit Provider Internal Medicine
DX: I21.4 Non-ST elevation (NSTEMI) myocardial infarction (principal); E78.5 Hyperlipidemia, unspecified; I25.110 Atherosclerotic heart disease of native coronary artery with unstable angina pectoris; Z95.5 Presence of coronary angioplasty implant and graft; I10 Essential (primary) hypertension; Z79.899 Other long term (current) drug therapy; I25.2 Old myocardial infarction; Z82.49 Family history of ischemic heart disease and other diseases of the circulatory system; I45.10 Unspecified right bundle-branch block
CPT/HCPCS: 36415; 71045; 80048; 80061; 82550; 83735; 84443; 84484; 85025; 85027; 85347; 85610; 87641; 92928; 93005; 93306; 93458; 99152; 99153; 99285; J7030; J7040; Q9957; A4216; C1725; C1769; C1874; C1887; C1894; C8929; C9600; Q9967

== ENCOUNTER → 2017-10-23 06:25 | Outpatient (CLI) | payer BC, SELFPAY ==
[2017-09-26 10:09] VITALS: BMI 32.1
[2017-09-26 16:00] VITALS: BP 113/66
[2017-10-09 09:05] VITALS: BP 116/74; BMI 31.6
--- NOTE | 2017-10-23 15:01 | STRESSREP ---
Stress Test Report Date: 10/23/2017 Procedure: Exercise tolerance test/nuclear imaging study Indication: CAD; T segment elevation [place]; PCI Consent: Per the patient Procedure: The patient exercised on a Rubens protocol for 6 minutes completing stage II achieving a peak heart rate of 144 bpm (85% predicted maximal heart rate) with a peak blood pressure 152/72 mmHg and a peak MET capacity of 7 MET's. The baseline ECG demonstrated normal sinus rhythm with a right IVCD pattern. The peak exercise ECG demonstrated no obvious ECG changes. There was a rare PVC during exercise. The functional capacity was considered average. There was no complaint of chest discomfort during exercise or recovery. The examination was discontinued secondary to leg discomfort. Impression: 1. Technically adequate (percent predicted maximal heart rate greater than 85%) exercise tolerance test 2. Peak exercise ECG with no obvious ECG changes 3. Rare PVC during exercise 4. Nuclear images pending Myocardial perfusion imaging study: Technique: The patient was injected with 14.5 mCi of technetium 99m Cardiolite and subsequently rest SPECT Cardiolite nuclear imaging was obtained in the horizontal long, vertical long, and short axis views. The patient exercised on a Rubens protocol for 6 minutes completing stage II achieving a peak heart rate of 144 bpm (85% predicted maximal heart rate) with a peak blood pressure 152/72 mmHg and a peak MET capacity of 7 MET's area the patient was injected with 44.8 mCi of technetium 99m Cardiolite and subsequently stress SPECT Cardiolite nuclear imaging was obtained in the horizontal long, vertical long, and short axis views. A gated Cardiolite study at peak stress was obtained. Interpretation: Rest and stress SPECT Cardiolite nuclear imaging status post realignment, normalization, and attenuation correction, demonstrates the appearance of diminished absence of myocardial perfusion/tracer uptake in portions of the basal inferoseptal, basal inferior, basal inferolateral segments extending towards the mid inferior segments which appear to be somewhat more prominent following stress as opposed to rest in the mid inferior segments. There is diminished end systolic thickening and brightening in the aforementioned areas. The gated Cardiolite study demonstrates diminished myocardial thickening and inward wall motion in the aforementioned areas. The reported LVEF is 58%. Impression: 1. Rest and stress SPECT current nuclear imaging demonstrate myocardial perfusion changes appearing compatible with an area of previous myocardial injury/infarction involving portions of the basal inferoseptal, basal inferior, and basal inferolateral segments extending toward the mid inferior segments with post stress myocardial perfusion changes appearing compatible with mild bg-infarct related myocardial ischemia involving the mid inferior segments. 2. The gated Cardiolite study reports an LVEF of 58%. This note was generated with [employer]ation software. It may contain incorrect words, spelling, and punctuation that were not noted in checking the note before signing.
--- NOTE | 2017-10-23 15:07 | STRESSREP_ITS ---
Stress Test Report Date: 10/23/2017 Procedure: Exercise tolerance test/nuclear imaging study Indication: CAD; T segment elevation [place]; PCI Consent: Per the patient Procedure: The patient exercised on a Rubens protocol for 6 minutes completing stage II achieving a peak heart rate of 144 bpm (85% predicted maximal heart rate) with a peak blood pressure 152/72 mmHg and a peak MET capacity of 7 MET's. The baseline ECG demonstrated normal sinus rhythm with a right IVCD pattern. The peak exercise ECG demonstrated no obvious ECG changes. There was a rare PVC during exercise. The functional capacity was considered average. There was no complaint of chest discomfort during exercise or recovery. The examination was discontinued secondary to leg discomfort. Impression: 1. Technically adequate (percent predicted maximal heart rate greater than 85% ) exercise tolerance test 2. Peak exercise ECG with no obvious ECG changes 3. Rare PVC during exercise 4. Nuclear images pending Myocardial perfusion imaging study: Technique: The patient was injected with 14.5 mCi of technetium 99m Cardiolite and subsequently rest SPECT Cardiolite nuclear imaging was obtained in the horizontal long, vertical long, and short axis views. The patient exercised on a Rubens protocol for 6 minutes completing stage II achieving a peak heart rate of 144 bpm (85% predicted maximal heart rate) with a peak blood pressure 152/72 mmHg and a peak MET capacity of 7 MET's area the patient was injected with 44.8 mCi of technetium 99m Cardiolite and subsequently stress SPECT Cardiolite nuclear imaging was obtained in the horizontal long, vertical long, and short axis views. A gated Cardiolite study at peak stress was obtained. Interpretation: Rest and stress SPECT Cardiolite nuclear imaging status post realignment, normalization, and attenuation correction, demonstrates the appearance of diminished absence of myocardial perfusion/tracer uptake in portions of the basal inferoseptal, basal inferior, basal inferolateral segments extending towards the mid inferior segments which appear to be somewhat more prominent following stress as opposed to rest in the mid inferior segments. There is diminished end systolic thickening and brightening in the aforementioned areas. The gated Cardiolite study demonstrates diminished myocardial thickening and inward wall motion in the aforementioned areas. The reported LVEF is 58%. Impression: 1. Rest and stress SPECT current nuclear imaging demonstrate myocardial perfusion changes appearing compatible with an area of previous myocardial injury/infarction involving portions of the basal inferoseptal, basal inferior, and basal inferolateral segments extending toward the mid inferior segments with post stress myocardial perfusion changes appearing compatible with mild bg-infarct related myocardial ischemia involving the mid inferior segments. 2. The gated Cardiolite study reports an LVEF of 58%. This note was generated with [employer] software. It may contain incorrect words, spelling, and punctuation that were not noted in checking the note before signing.
== END ==
PROVIDERS: Family Provider Internal Medicine; PCP Internal Medicine; Visit Provider Physician Assistant Medical
DX: I25.10 Atherosclerotic heart disease of native coronary artery without angina pectoris (principal); I25.2 Old myocardial infarction; Z98.61 Coronary angioplasty status
CPT/HCPCS: 78452; 93017; A9500; A4216

== ENCOUNTER 2018-06-25 06:54 | Inpatient (IN) | payer BC, SELFPAY ==
[2017-09-26 10:09] VITALS: BMI 32.1
[2018-06-10 13:01] VITALS: BP 129/71; PULSE 70; RESP 16; TEMP 36.8; O2SAT 95; BMI 33.0
[2018-06-10 14:10] LABS: Absolute Neutrophil Count 4.7 X10^3/uL (2.0-7.7); Basophil# 0.01 X10^3/uL; Basophil% 0.1 % (0-1); Eosinophil# 0.36 X10^3/uL; Eosinophils% 5.4 % (0-5); Hematocrit 41.6 % (40-54); Hemoglobin 14.1 g/dl (13.0-16.5); Lymphocyte % 14.9 % (19-41); Mean Corp Hgb Conc 33.9 g/gl (32-36); Mean Corpuscular Hgb 29.9 pg (27.0-32.0); Mean Corpuscular Volume 88.1 fL (80-94); Mean Platelet Vol. 9.9 fl (6.2-12.0); Monocyte# 0.64 X10^3/uL; Monocyte% 9.6 % (0-10); Neutrophil # 4.67 X10^3/uL (2.7-7.7); Neutrophil % 69.7 % (47-70); POSITIVE COUNT NO; POSITIVE DIFFERENTIAL NO; POSITIVE MORPHOLOGY NO; Platelet Count 215 K/mm3 (150-450); RBC Distribution Width CV 13.9 % (11.6-14.6); RBC Distribution Width SD 44.7 fl (35.1-43.9); Red Blood Count 4.72 M/mm3 (4.6-6.2); White Blood Count 6.7 K/mm3 (4.4-11.0)
[2018-06-10 14:31] LABS: Anion Gap 8 (5-15); BUN 17 mg/dL (7-18); BUN/Creat Ratio 15.6 RATIO (10-20); Calcium,Total 8.3 mg/dL (8.5-10.1); Chloride 106 mmol/L (98-107); Creatinine, Serum 1.09 mg/dL (0.70-1.30); EST Glomerular Filtration Rate 75 mL/min (>60); Est Glom Filt Rate - Afr Amer 91 mL/min (>60); Estimated Creatinine Clearance 80.93 ml/min; Glucose 120 mg/dL (74-106); Sodium Level 139 mmol/L (136-145)
--- NOTE | 2018-06-11 19:52 | HP.PCM_ITS ---
History and Physical DATE OF SURGERY: 06/25/2018 SCHEDULED PROCEDURE: Direct Anterior right total hip arthroplasty HISTORY OF PRESENT ILLNESS: This is a 53-year-old male who has been having ongoing pain in the right hip for over 10 years. Patient states the pain can reach as high as a 5/10. Patient has constant, aching, sharp, stabbing, and soreness in the right hip. Patient states pain is located in the right groin and side of his hip. Pain does wake him at night. He does have start up pain. Pain is increased with walking any amount of distance, going up and down stairs, and standing. He does feel he has been losing range of motion in the hip. Patient has difficult time with activities of daily living including showering, getting dressed, doing housework, leisure activity such as working on his car and riding a motorcycle. Patient has tripped on the stairs due to his right hip. Patient has tried rest with minimal relief. He has also tried heat with minimal relief. Patient has tried oral medications consisting of daze-adm-ijlzxgm ibuprofen and Tylenol with temporary relief. Patient denies previous surgery on his right hip. Patient has a medical history pertinent for coronary artery disease as well as heart attack with the most recent one in September 2017. He also sustained one in 2009. Patient is seen by hoop punch and coiler operator Dr. Vang. Patient is currently on aspirin and Brilinta. Patient has had heart stents placed. Patient also complains of having a herniated disc in his back that has affected down his right leg. Lien cintron also has sleep apnea. He currently denies any chest pain, shortness of breath, fevers chills, recent infections. We are obtaining surgical clearance from patient's primary care physician and hoop punch and coiler operator. After failing conservative measures and discussing all treatment options with Dr. Evert Hicks, the patient would like to proceed with a direct anterior right total hip arthroplasty. REVIEW OF SYSTEMS: ROS: Const: Denies change in appetite, fever and weight change. CV: Denies chest pain, heart murmur and irregular heartbeat. Resp: Denies cough, pneumonia, shortness of breath, tuberculosis and wheezing. GI: Denies constipation, diarrhea, heartburn, nausea, rectal itching, bloody stools and vomiting. : Denies incontinence. Musculo: Reports trouble walking, but denies leg swelling, pain and weakness. Skin: Denies Raynaud's, history of shingles and tattoo. Neuro: Denies ambulatory dysfunction, dizziness, numbness/tingling and tremor. Psych: Reports stress, but denies anxiety and insomnia. Mitul/Lymph: Denies anemia, bleeding/bruising tendency and past transfusion. Reviewed, no changes. PAST MEDICAL HISTORY: Advance Care Plan: No Advance Directives Effective Date: 03/08/2018 PMH: Medical Problems: Arthritis, Coronary Artery Disease (CAD), Heart Attack, Osteoporosis, Sleep Apnea Accidents: Fracture - RT ARM- [place], [place]- 1977 LT ANKLE- [place]- 1994 Surgical Hx: Heart Stent - 2009 & 2018 AKISAIAS & CARMELO, JEREMIE VANG, GRETA DICKEY AND JUANI CORDERO Hernia Repair - (2002) CARMELO- VITO LT Knee - (1992) LT Ankle - (1994) Anesthesia Complications: None Assistive Devices: Glasses Reviewed, no changes. 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 Personal Habits: Cigarette Use: Never Smoked Cigarettes.Alcohol: Occasionally.Drug Use: Denies Use.Enjoy Exercising: Exercises 1-3 X/Week. Reviewed, no changes. VITALS: Ht: 69.5 Wt: 228lb Wt k.421 BMI: 33.2 BP: 110/70 Pulse: 80 Resp: 18 T: 98.1 T: 36.7C ALLERGIES: No Known Drug Allergy MEDICATIONS: Aspirin 81 Low Dose 81 mg 1po qday, Atorvastatin Calcium 40 mg 1po qday, Losartan Potassium 25 mg 1po qday, Carvedilol 12.5 mg 1po bid, Brilinta 90 mg 1po bid, Tylenol 325 mg prn, Ibuprofen 200 mg prn PRE-OP EXAM: General appearance:NORMAL Other: Eyes: Conjunctivae and lids: NORMAL Pupils: ERR Ears, Nose, Mouth, and Throat: NORMAL Other: Inspection of lips, teeth and gums: NORMAL Other: Neck: Examination of neck: no masses noted. Respiratory: Assessment of respiratory effort: NORMAL Other: Auscultation of lungs: clear to auscultation no wheezes, rhonchi or rales. Cardiovascular: Auscultation of heart: regular rate and rhythm, no murmurs, gallops or rubs. Exam of carotid arteries: NORMAL Other: Gastrointestinal: Exam of abdomen: soft, nontender, nondistended bowel sounds present. PHYSICAL EXAMINATION: Patient does walk with an antalgic gait. Patient does have hip flexion contra cture on the right approximately 20 with 10 left knee contracture. Flexion of the hip is 95 with internal rotation 20 and external rotation 5. He has increased pain with range of motion of the right hip. Sensation intact to light touch. IMAGING STUDIES: X-rays of the right hip reveal joint space narrowing with subchondral sclerosis and osteophyte formation consistent with severe osteoarthritis. There is evidence of femoral head flattening and collapse with large osteophyte formation. IMPRESSION: Impression: 1. Severe right hip osteoarthritis 2. Coronary artery disease 3. Previous heart attack most recent September 2017 4. History of heart stents 5. Sleep apnea 6. Osteoporosis PLAN: Dr. Hicks did discuss and review with the patient all treatment options including surgical versus nonsurgical options. Patient does wish to proceed with the above-stated procedure. Potential risks, benefits, and complications of the procedure were discussed in detail including but not limited to , infection, nerve and blood vessel damage, persistent pain, numbness, tingling, paresthesias, blood clot, pulmonary embolism, and requirement for possible further surgery. The patient expressed full understanding and has no further questions for the doctor. Patient does agree to proceed with the above-stated procedure and has signed the surgery consent form. This dictation was created using voice recognition software. Phonetic and/or grammatical errors may exist. ___ I have re-examined the patient. There are no clinical changes since date of exam. ___ See progress notes for changes. ___ Dictated on admission Date: Time: Signature:
--- NOTE | 2018-06-20 13:47 | CASEMGMT ---
Call placed to patient to discuss discharge needs after upcoming surgery. Patient plans to return home with assistance from family. Patient is unsure if outpatient physical therapy is set up, suggested that patient contact [facility] and check. Patient has a walker. No shower seat or toilet riser. Patient uses sink and tub for stability with toileting due to the set up of his bathroom. Bed and bath are on the 2nd floor of the home. Patient reports that after previous heart cath, he spent part of the day upstairs and part of the day downstairs to avoid numerous trips up/down steps, plans to do the same thing again. Patient has 4 steps into home from outside. Informed patient that RN-CM will likely follow up after surgery. Savana Rizzo LPN Clinical Support
[2018-06-21 16:52] LABS: Albumin, Serum 3.8 g/dL (3.2-5.0)
[2018-06-25] VITALS (15 sets, daily range): BP systolic 107–130; BP diastolic 59–80; PULSE 53–97; RESP 16–18; TEMP 35.6–37.2; O2SAT 94–100; BMI 33.0
[2018-06-25] MEDS: Acetaminophen 500 MG Tablet 1000 MG PO ×3 (07:49→21:42)
[2018-06-25] MEDS: oxyCODONE HCl Cr 10 MG Tablet PO (07:49)
[2018-06-25] MEDS: Lactated Ringers 1,000 ML 999 ML IV (08:05)
--- NOTE | 2018-06-25 08:54 | OP.PCM_ITS ---
Report of Operation Date of Procedure: 06/25/18 Pre-Operative Diagnosis: Right hip primary osteoarthritis Post-Operative Diagnosis: Right hip primary osteoarthritis Surgery/Procedure Performed:: Right direct anterior shoulder replacement Description of Surgical Findings:: stable hip with equal leg lengths psychological anthropologist: Shravan Cheng Type of Anesthesia:: Spinal Anesthesiologist: Ten Armstrong Special Medications: 2 g Ancef, 1 g TXA at incision, 1 g TXA closure, 10 mg Decadron, joint cocktail (5 mg Duramorph, 30 mL of 0.5% Ropivicaine, 1000 units of epinephrine, 30 mg of Toradol) Specimen's removed: Bony cuts Estimated Blood Loss (mL): 250 Fluids Replaced: 1700 ml crystalloid Description of Procedure: Components used: 1. Accolade 2 [place] femoral stem size 7 132? 2. Zion trident II acetabular shell size 56 mm 3. [place] X3 polyethylene F 4. Zion Biolox delta 36mm, -5mm femoral head Brief history operative indications: 53 yo m who failed conservative measures for their hip osteoarthritis. X-rays were consistent with osteoarthritis including joint space narrowing, osteophyte formation and subchondral cysts. Total hip replacement was discussed with the patient with risks and benefits including but not limited to blood loss, DVTs, PEs, neurovascular damage, dislocation, general risks of anesthesia including loss of life. Patient demonstrated an understanding medical clearance is obtained the patient was consented for surgery. Procedure: On the date of procedure the patient's r hip was marked in the preoperative area. Patient was then taken back to the operating room where anesthesia assumed control of the C-spine and airway and administered anesthetic. Patient was transferred to the operating table and placed in the supine position. The hips were placed at the break of the bed and a sacral bump was placed. The r lower extremity was then prepped out in a sterile fashion using chlorhexidine while the surgeon scrubbed. The PA was vital in the positioning of the patient. Upon reentering the room the r lower extremity was draped in the standard orthopedic fashion and the incision was marked. A timeout was called and everyone agreed upon the side, the site, the procedure be performed, antibody given, and patient's identity. At this time incision was made through skin, subcutaneous tissue, and fat down to fascia. The fascia was then incised and the TFL was retracted laterally. A retractor was placed on the lateral border of the femoral neck. Attention was directed to the inferior portion of the approach and all crossing vessels were identified and appropriately coagulated. A retractor was then placed on the medial portion of the femoral neck. The anterior capsule was then cleared of all soft tissue and then H shaped capsulotomy was made. The retractors were then placed inside the capsule. The femoral neck was identified and a cleanup cut was made. At this time a power corkscrew was used to remove the femoral head. Attention was then turned toward the acetabulum where the soft tissues were appropriately retracted and the acetabulum was sequentially reamed to 56 mm. A 56 mm cup was then selected and impacted into place. Acetabular liner was impacted into place and locking mechanism was verified. The position of the acetabular cup was then verified under live fluoroscopy. Attention was then turned to the femur. Soft tissue releases on the medial and lateral femoral neck were appropriately done, the leg was externally rotated and lateralized. A Lau retractor was placed medially and proximally to the greater trochanter this allowed appropriate visualization and exposure of the femoral canal. Rongeour was then used to remove excess lateral bone. A canal finder and entry broach were used to open the proximal canal. Once we verified we were down the femoral canal we subsequently broached up to a size 7 femur. The appropriate neck was placed in the previously selected head was trialed with a -5 mm neck. Traction was pulled and the hip was reduced with internal rotation at this point it was felt that the leg lengths were equal. We trialed a neutral neck which felt like the leg lengths were equal based on the malleoli. Once it was appropriately reduced and stability was checked. There was minimal shuck, equal leg lengths and appropriate stability with hyperextension and external rotation as well as with 90? flexion and internal rotation. Based on the malleoli the final components were opened. When attempting to dislocate the trial components the dislocation was very difficult. Fluoroscopy was then to take an AP pelvis x-ray which showed that the right lesser trochanter/hip was longer than the left. At this time we elected to go back to the -5 mm neck. After squaring the pelvis and retaking the x-ray patient did have equal leg lengths based on the malleoli and the x-ray. At this time the -5 neck was opened. The trial components were then dislocated the proximal femur was again exposed and the components were removed from the wound. The final components were verified and opened. The wound was copiously irrigated out with normal saline. The acetabulum was checked for any residual debris. The final components were placed and impacted. Traction and internal rotation were again used to reduce the hip. After adequate reduction the hip remained stable with appropriate leg lengths. The final components were once again checked with live fluoroscopy and were found to be satisfactory. The wound was then copiously irrigated with normal saline once more, and hemostasis was obtained. Closure was then done using #1 Vicryl runner to close the fascia. A 2-0 vicryl interuppted sutures were used to close the subcutaneous skin. A 3-0 Monocryl and Steri-Strips were used for final skin closure. A Silverlon dressing was placed. Patient was awakened by anesthesia and transferred to the [facility]. Patient was then transferred to the PACU for recovery. Postoperative plan: Patient will get 24 hours postop antibiotics. Patient will get in-house physical therapy and will be weight-bear as tolerated. Patient will follow up in office in 2 weeks for a wound check and x-rays. During the course of the procedure the physician care management assistant played a vital role. His intimate knowledge of my steps in the procedure aided in safe and expedient completion of the procedure. The PA played a vital rolls in positioning particularly in obtaining the appropriate positioning of the sacral bump. The PA was also vital in the retraction of soft tissues during the exposure and especially the femoral work as this is a vital part of the procedure to prevent complications and fractures. The PA was also vital and protecting soft tissues during times of bony cuts and reaming. He also played a vital role in closure with my direct supervision. The PA was also important during reduction and dislocation of the joint and trials intraoperatively. Grafts/Implants Used: [place] Accolade 2 - Complications none - Admit VTE Documentation VTE Present on Admission: No VTE Mechan Device Prophylaxis: SCD's, Thigh High NYLA Hose VTE Pharm Prophylaxis ordered?: Yes
[2018-06-25] MEDS: Cefazolin 2 GM in 0.9% Normal Saline 100 ML IV (09:00)
--- NOTE | 2018-06-25 09:00 | RAD_ITS ---
STUDY: X-RAY - PELVIS AND RIGHT HIP REASON FOR EXAM: Male, 53 years old. Intraoperative digital documentation images of right total hip arthroplasty. TECHNIQUE: Radiological exam, hip, unilateral, with pelvis when performed; 2 or 3 views. COMPARISON: January 18, 2010 FINDINGS: 2 intraoperative digital documentation images were obtained. RAD/Hip 1 view with Pelvis IMPRESSION: Intraoperative digital documentation images. Electronically Signed: Wilber Brar MD at 11:34 EDT , Service support ,
--- NOTE | 2018-06-25 11:35 | RAD_ITS ---
STUDY: X-RAY - PELVIS AND RIGHT HIP REASON FOR EXAM: Male, 53 years old. Right total hip arthroplasty. TECHNIQUE: Radiological exam, hip, unilateral, with pelvis when performed; 2 or 3 views. COMPARISON: None. FINDINGS: There is generalized osteopenia. There is a total hip arthroplasty in anatomic alignment with expected post-operative findings. There are no complications noted. Multiple coils are noted in the left pelvis. RAD/Hip Min 2 Views (Portable) IMPRESSION: Placement of total hip arthroplasty in anatomic alignment without complications. Electronically Signed: Wilber Brar MD at 12:04 EDT , Service support ,
[2018-06-25] MEDS: Cefazolin 1 GM/50 ML BAG IV (17:26)
[2018-06-25] MEDS: Meloxicam 7.5 MG Tablet PO (17:32)
--- NOTE | 2018-06-25 17:34 | PCM.PN.HOSP ---
Subjective: Patient is a 53-year-old male was admitted by orthopedic surgery for right hip replacement on account of osteoarthritis. He had surgery on 06/25/2018. Today's postop day 0. Hospitalist service was consulted to help with medical management. Patient seen and examined. He also has a past medical history of an NSTEMI in September 2017 and is status post stents to the mid left circumflex artery. Follows up with Dr. Vang at [facility] in [place]. He currently has no complaints. Pain is well controlled. He denies any fever or chills, any palpitations, any cough or chest pain, any shortness of breath, any abdominal pain, any diarrhea vomiting. Review of systems otherwise negative. Vitals/I&O's: Vital Signs Temp Pulse Resp BP Pulse Ox 98.1 F 69 16 130/59 H 94 06/25/18 17:22 06/25/18 17:22 06/25/18 17:22 06/25/18 17:22 06/25/18 17:22 Oxygen Delivery Method Room Air Weight: 230 lb Body Mass Index (BMI) 33.0 Intake and Output for Last 24 Hours 06/23/18 06/24/18 06/25/18 23:59 23:59 23:59 Intake Total 1999 Balance 1999 General: Alert, Oriented x3, Cooperative, No apparent distress HEENT: Atraumatic, PERRLA, EOMI, Normocephalic Oral: Moist Mucosa Neck: Supple, No JVD, Negative Carotid Bruits Lungs: Clear to auscultation, Normal air movement, No rhonchi, No wheeze, No rales Cardiovascular: Regular rate, Regular Rhythm, Normal S1, Normal S2, No murmurs Abdomen: Bowel Sounds Present, Soft, Non Tender, Non-Distended, No Hepato-splenomegaly Extremities: No clubbing, No cyanosis, No edema, Capillary Refill Less than 3 Seconds, - - dressing over right hip Skin: No rashes, No breakdown Musculoskeletal: No Tenderness to Palpation of Joints or Extremities Lymphatic: No Cervical, Supraclavicular, or Inguinal Adenopathy Neurological: Cranial nerves II-XII grossly intact, Neuro grossly intact Psych/Mental Status: Normal Affect, Appropriate, Alert and oriented to time, place, person, mood and affect Current Medications Acetaminophen (Tylenol) 1,000 mg PO Q8 JOSE Last Admin: 10/23/18 15:45 Dose: 1,000 mg Aspirin (Aspirin, Baby) 81 mg PO DAILY@0800 COUNT [facility]CLUDES THE [facility] Atorvastatin Calcium (Lipitor) 40 mg PO QHS COUNT INCLUDES THE [facility] Carvedilol (Coreg) 12.5 mg PO BID COUNT INCLUDES THE [facility] Famotidine (Pepcid) 20 mg PO DAILY COUNT INCLUDES THE [facility] Last Admin: 06/25/18 15:42 Dose: Not Given Cefazolin Sodium () 1 gm in 50 mls @ 150 mls/hr IV Q8H COUNT INCLUDES THE [facility] Stop: 06/26/18 01:19 Last Admin: 06/25/18 17:26 Dose: 150 mls/hr Lactated Ringer's () 1,000 mls @ 125 mls/hr IV .Q8H COUNT INCLUDES THE [facility] Influenza Virus Vaccine Quadrival (Fluarix/Fluzone) 0.5 ml IM .ONCE ONE Stop: 06/26/18 10:01 Ketorolac Tromethamine (Toradol) 15 mg IV Q6H PRN PRN PRN Reason: MILD-MOD PAIN (1-5/10) Stop: 06/30/18 07:17 Losartan Potassium (Cozaar) 25 mg PO DAILY COUNT INCLUDES THE [facility] Last Admin: 06/25/18 17:32 Dose: 7.5 mg Morphine Sulfate () 2 - 4 mg IV Q2H PRN PRN PRN Reason: SEVERE PAIN (6-10/10) Morphine Sulfate () 2 - 4 mg IV Q2H PRN PRN PRN Reason: SEVERE PAIN (6-10/10) Nitroglycerin (Nitrostat) 0.4 mg SUBLINGUAL .Q5-15M PRN PRN Reason: chest pain Nutritional Formula (Lactose Free) (Ensure Clear) 120 ml PO TIDCM COUNT INCLUDES THE [facility] Last Admin: 06/25/18 17:25 Dose: 120 ml Ondansetron HCl (Zofran) 4 mg IV Q8H PRN PRN PRN Reason: NAUSEA Oxycodone HCl (Oxyir) 5 - 10 mg PO Q4H PRN PRN PRN Reason: MOD-SEVERE PAIN (4-10/10) Promethazine HCl (Phenergan) 12.5 mg IM Q6H PRN PRN; Protocol PRN Reason: NAUSEA/VOMITING Senna/Docusate Sodium (Senokot-S, Dana-Colace) 2 tablet PO BID COUNT INCLUDES THE [facility] Last Admin: 06/25/18 15:42 Dose: Not Given Sodium Chloride () 5 - 30 ml IV UD PRN PRN Reason: SALINE FLUSH Ticagrelor (Brilinta) 90 mg PO BID COUNT INCLUDES THE [facility] Medical Necessity - Tobacco Use Smoking Status: Never smoker Assessment/Plan All Active Problems (Last Updated 10/09/17 @ 08:58 by Priti Dennis) NSTEMI (non-ST elevated myocardial infarction) (Acute) S/P PTCA (percutaneous transluminal coronary angioplasty) (Acute) 53-year-old male with a history of arthritis who is status post right hip replacement. Today's postop day 0. 1. Osteoarthritis s/p right hip replacement- today is POD 0 pain well controlled management as per orthopedics pain management as per orthopedics 2. CAD had NSTEMI in 09/20 and had CRYSTAL placed in mid left circumflex He follows up with Dr. Vang at [facility] in [place]. He states he was cleared by his seed corn manager production to undergo surgery even though he has not completed in 1 year of dual antiplatelet therapy after ACS as per guidelines. He states his seed corn manager production that he was comfortable with him having the surgery because of the particular type of stents that he had placed On Brilinta and aspirin. These were held prior to surgery. Plan is to resume them as soon as possible, hopefully tomorrow if orthopedics is okay with this. Continue artorvastatin. 3. Hypertension fairly controlled. on carvedilol 12.5mg bid and losartan 25mg daily. To continue DVT prophylaxis: currently on SCDs. It is likely orthopedics may prefer to use aspirin as he is already on it, and adding another oral anticoagulant in addition to his aspirin and brilinta will lead to increased risk of bleeding will defer to orthopedics about selection of oral anticoagulation for DVT prevention Thank you for the courtesy of the consult, we will continue to follow with you. Code Visit Inpatient E&M: [id number] Subs Hosp L2
--- NOTE | 2018-06-25 17:46 | PN_ITS ---
Subjective: Patient is a 53-year-old male was admitted by orthopedic surgery for right hip replacement on account of osteoarthritis. He had surgery on 06/25/2018. Today's postop day 0. Hospitalist service was consulted to help with medical management. Patient seen and examined. He also has a past medical history of an NSTEMI in September 2017 and is status post stents to the mid left circumflex artery. Follows up with Dr. Vang at [facility] in [place]. He currently has no complaints. Pain is well controlled. He denies any fever or chills, any palpitations, any cough or chest pain, any shortness of breath, any abdominal pain, any diarrhea vomiting. Review of systems otherwise negative. Vitals/I&O's: Vital Signs Temp Pulse Resp BP Pulse Ox 98.1 F 69 16 130/59 H 94 06/25/18 17:22 06/25/18 17:22 06/25/18 17:22 06/25/18 17:22 06/25/18 17:22 Oxygen Delivery Method Room Air Weight: 230 lb Body Mass Index (BMI) 33.0 Intake and Output for Last 24 Hours 06/23/18 06/24/18 06/25/18 23:59 23:59 23:59 Intake Total 1999 Balance 1999 General: Alert, Oriented x3, Cooperative, No apparent distress HEENT: Atraumatic, PERRLA, EOMI, Normocephalic Oral: Moist Mucosa Neck: Supple, No JVD, Negative Carotid Bruits Lungs: Clear to auscultation, Normal air movement, No rhonchi, No wheeze, No rales Cardiovascular: Regular rate, Regular Rhythm, Normal S1, Normal S2, No murmurs Abdomen: Bowel Sounds Present, Soft, Non Tender, Non-Distended, No Hepato- splenomegaly Extremities: No clubbing, No cyanosis, No edema, Capillary Refill Less than 3 Seconds, - - dressing over right hip Skin: No rashes, No breakdown Musculoskeletal: No Tenderness to Palpation of Joints or Extremities Lymphatic: No Cervical, Supraclavicular, or Inguinal Adenopathy Neurological: Cranial nerves II-XII grossly intact, Neuro grossly intact Psych/Mental Status: Normal Affect, Appropriate, Alert and oriented to time, place, person, mood and affect Current Medications Acetaminophen (Tylenol) 1,000 mg PO Q8 JOSE Last Admin: 10/23/18 15:45 Dose: 1,000 mg Aspirin (Aspirin, Baby) 81 mg PO DAILY@0800 [facility] Atorvastatin Calcium (Lipitor) 40 mg PO QHS [facility] Carvedilol (Coreg) 12.5 mg PO BID [facility] Famotidine (Pepcid) 20 mg PO DAILY [facility] Last Admin: 06/25/18 15:42 Dose: Not Given Cefazolin Sodium () 1 gm in 50 mls @ 150 mls/hr IV Q8H [facility] Stop: 06/26/18 01:19 Last Admin: 06/25/18 17:26 Dose: 150 mls/hr Lactated Ringer's () 1,000 mls @ 125 mls/hr IV .Q8H [facility] Influenza Virus Vaccine Quadrival (Fluarix/Fluzone) 0.5 ml IM .ONCE ONE Stop: 06/26/18 10:01 Ketorolac Tromethamine (Toradol) 15 mg IV Q6H PRN PRN PRN Reason: MILD-MOD PAIN (1-5/10) Stop: 06/30/18 07:17 Losartan Potassium (Cozaar) 25 mg PO DAILY [facility] (M[facility]) [facility] Last Admin: 06/25/18 17:32 Dose: 7.5 mg Morphine Sulfate () 2 - 4 mg IV Q2H PRN PRN PRN Reason: SEVERE PAIN (6-10/10) Morphine Sulfate () 2 - 4 mg IV Q2H PRN PRN PRN Reason: SEVERE PAIN (6-10/10) Nitroglycerin (Nitrostat) 0.4 mg SUBLINGUAL .Q5-15M PRN PRN Reason: chest pain Nutritional Formula (Lactose Free) (Ensure Clear) 120 ml PO TIDCM [facility] Last Admin: 06/25/18 17:25 Dose: 120 ml Ondansetron HCl (Zofran) 4 mg IV Q8H PRN PRN PRN Reason: NAUSEA Oxycodone HCl (Oxyir) 5 - 10 mg PO Q4H PRN PRN PRN Reason: MOD-SEVERE PAIN (4-10/10) Promethazine HCl (Phenergan) 12.5 mg IM Q6H PRN PRN; Protocol PRN Reason: NAUSEA/VOMITING Senna/Docusate Sodium (Senokot-S, Dana-Colace) 2 tablet PO BID [facility] Last Admin: 06/25/18 15:42 Dose: Not Given Sodium Chloride () 5 - 30 ml IV UD PRN PRN Reason: SALINE FLUSH Ticagrelor (Brilinta) 90 mg PO BID [facility] Medical Necessity - Tobacco Use Smoking Status: Never smoker Assessment/Plan All Active Problems (Last Updated 10/09/17 @ 08:58 by Priti Dennis) NSTEMI (non-ST elevated myocardial infarction) (Acute) S/P PTCA (percutaneous transluminal coronary angioplasty) (Acute) 53-year-old male with a history of arthritis who is status post right hip replacement. Today's postop day 0. 1. Osteoarthritis s/p right hip replacement- today is POD 0 * pain well controlled * management as per orthopedics * pain management as per orthopedics * 2. CAD * had NSTEMI in 09/20 and had CRYSTAL placed in mid left circumflex * He follows up with Dr. Vang at [facility] in [place]. He states he was cleared by his fire prevention inspector to undergo surgery even though he has not completed in 1 year of dual antiplatelet therapy after ACS as per guidelines. He states his fire prevention inspector that he was comfortable with him having the surgery because of the particular type of stents that he had placed * On Brilinta and aspirin. These were held prior to surgery. * Plan is to resume them as soon as possible, hopefully tomorrow if orthopedics is okay with this. * Continue artorvastatin. * 3. Hypertension * fairly controlled. * on carvedilol 12.5mg bid and losartan 25mg daily. To continue * DVT prophylaxis: currently on SCDs. * It is likely orthopedics may prefer to use aspirin as he is already on it, and adding another oral anticoagulant in addition to his aspirin and brilinta will lead to increased risk of bleeding * will defer to orthopedics about selection of oral anticoagulation for DVT prevention * Thank you for the courtesy of the consult, we will continue to follow with you. Code Visit Inpatient E&M: [id number] Subs Hosp L2
[2018-06-25] MEDS: Atorvastatin Calcium 40 MG Tablet PO (21:42)
[2018-06-25] MEDS: Senna/Docusate Sodium 1 Tablet 2 TABLET PO (21:42)
[2018-06-25] MEDS: Carvedilol 12.5 MG Tablet PO (21:42)
[2018-06-26] MEDS: Cefazolin 1 GM/50 ML BAG IV (01:18)
[2018-06-26 03:38] VITALS: BP 100/67; PULSE 92; RESP 16; TEMP 36.7; O2SAT 95
[2018-06-26] MEDS: Acetaminophen 500 MG Tablet 1000 MG PO (06:21)
[2018-06-26 06:53] LABS: Hematocrit 36.5 % (40-54); Hemoglobin 12.3 g/dl (13.0-16.5); Mean Corp Hgb Conc 33.7 g/gl (32-36); Mean Corpuscular Hgb 30.1 pg (27.0-32.0); Mean Corpuscular Volume 89.2 fL (80-94); Mean Platelet Vol. 10.1 fl (6.2-12.0); Platelet Count 188 K/mm3 (150-450); RBC Distribution Width CV 13.4 % (11.6-14.6); RBC Distribution Width SD 43.5 fl (35.1-43.9); Red Blood Count 4.09 M/mm3 (4.6-6.2); White Blood Count 16.4 K/mm3 (4.4-11.0)
--- NOTE | 2018-06-26 06:56 | PN.ORTHO_ITS ---
Subjective: The patient was sitting in bed upon examination. Patient denies any chest pain, shortness of breath, dizziness, lightheadedness, nausea or vomiting, or calf pain. Pain is controlled on medications. No adverse overnight events. Overall patient is doing well and wishes to go home today. Objective: Vital signs stable and afebrile. Patient is able to plantarflex and dorsiflex actively. Sensation is intact to light touch to saphenous, sural, superficial and deep peroneal, and tibial distribution. Dressing is clean dry and intact. Negative Homans bilaterally, negative signs and symptoms of DVT. - Physical Exam General: Alert, Oriented x3, Cooperative, No apparent distress Vital Signs Temp Pulse Resp BP Pulse Ox 98.1 F 92 16 100/67 95 06/26/18 03:38 06/26/18 03:38 06/26/18 03:38 06/26/18 03:38 06/26/18 03:38 Oxygen Delivery Method Room Air Weight: 104.326 kg Body Mass Index (BMI) 33.0 Intake and Output for Last 24 Hours 06/24/18 06/25/18 06/26/18 23:59 23:59 23:59 Intake Total 1999 / 1999 690 / 690 Output Total 900 / 900 1300 / 1300 Balance 1100 / 1100 -610 / -610 Laboratory Tests Past 24 Hrs 06/26/18 06/26/18 06:14 06:14 WBC Pending RBC Pending Hgb Pending Hct Pending MCV Pending MCH Pending MCHC Pending RDW Pending RDW Differential Pending Plt Count Pending Sodium Pending Potassium Pending Chloride Pending Carbon Dioxide Pending Anion Gap Pending BUN Pending Creatinine Pending Est GFR (MDRD) Af Amer Pending Est GFR (MDRD) Non-Af Pending BUN/Creatinine Ratio Pending Glucose Pending Calcium Pending Medical Necessity - Tobacco Use Smoking Status: Never smoker Assessment/Plan All Active Problems (Last Updated 10/09/17 @ 08:58 by Priti Dennis) NSTEMI (non-ST elevated myocardial infarction) (Acute) S/P PTCA (percutaneous transluminal coronary angioplasty) (Acute) 1. S/P right total hip arthroplasty POD #1 2. Continue Pain Medications: Tylenol and OxyIR 3. DVT Prophylaxis: Patient will continue with her aspirin 81 mg daily and Brilinta 4. PT/OT: Weightbearing as tolerated 5. H & H: 12.3/36.5, asymptomatic 6. Leukocytosis: Currently 16.4, afebrile. Patient did receive Decadron intraoperatively 7. Encouraged Incentive Spirometry 8. Disposition: Plan is for possible discharge home today if pain is controlled and patient tolerates physical therapy. Prescriptions will be sent to [facility] pharmacy in [place]. Patient will follow-up per postop instructions.
[2018-06-26 07:00] LABS: Anion Gap 8 (5-15); BUN 16 mg/dL (7-18); BUN/Creat Ratio 15.1 RATIO (10-20); Calcium,Total 7.9 mg/dL (8.5-10.1); Chloride 106 mmol/L (98-107); Creatinine, Serum 1.06 mg/dL (0.70-1.30); EST Glomerular Filtration Rate 78 mL/min (>60); Est Glom Filt Rate - Afr Amer 94 mL/min (>60); Estimated Creatinine Clearance 83.22 ml/min; Glucose 162 mg/dL (74-106); Potassium 4.4 mmol/L (3.5-5.1); Scan Indicated on CBC? Y/N NO; Sodium Level 139 mmol/L (136-145)
--- NOTE | 2018-06-26 07:01 | DCINST_ITS ---
Discharge Diet: No Restrictions Discharge Activity: May Not Drive - while taking narcotic pain medications. May shower in (days): 1 - Turned dressing away from water Ice area for (Minutes): 20 - Every 1-2 hours while awake Weight Bearing Status: Weight bearing as tolerated Elevate: Operative Extremity Additional Activity Instructions:: Wear elastic stockings for 2 weeks. DO NOT use alcohol with narcotic pain medication. DO NOT make important decisions while taking narcotic medication. If you have problems with taking your medication (rash, itching, nausea, etc.) call the office at once. Call your doctor if your incision/area has: Increased Pain/ Swelling, Increased Redness, Foul Smelling Discharge Call your doctor if you observe: Fever of 101 or Higher Remove Dressing in (days):: 4 - Okay to remove dressing on June 30, 2018 Additional Instructions: Follow [facility] postop instructions Allergies/Adverse Reactions: Allergies No Known Allergies Allergy (Verified 06/10/18 12:54) Medications to take at Discharge Aspirin 81 mg PO DAILY 02/06/17 Atorvastatin Calcium [Lipitor] 40 mg PO QHS 02/06/17 nitroglycerin 0.4 mg sublingual tablet 0.4 mg SUBLINGUAL Q5-15M PRN #25 tab 10/09/17 Carvedilol [Coreg (Beta Maddi)] 12.5 mg PO BID 06/10/18 Losartan Potassium [Cozaar] 25 mg PO DAILY 06/10/18 Ticagrelor [Brilinta] 90 mg PO BID 06/10/18 Acetaminophen [Tylenol] 1,000 mg PO Q8 #90 tablet 06/26/18 Oxycodone [Oxyir] 5 - 10 mg PO Q4H PRN PRN 5 Days #60 tablet 06/26/18 Senna/Docusate Sodium [Senokot-S] 2 tablet PO BID #20 tablet 06/26/18 The following prescriptions were given: Oxycodone [Oxyir] 5 - 10 mg PO Q4H PRN PRN 5 Days #60 tablet PRN Reason: Mod-Severe Pain (-06/12) Acetaminophen [Tylenol] 1,000 mg PO Q8 #90 tablet Senna/Docusate Sodium [Senokot-S] 2 tablet PO BID #20 tablet Primary Care Physician: Paige Alfredo DO [Primary Care Provider] - Test Results: Test results from this visit will be discussed in further detail at your follow- up appointment, if applicable. Please Follow Up With: Physical therapy at [facility] When: 06/28/18 @ 3:00 pm Please Follow Up With: Shravan Cheng PA-C When: 07/08/18 @ 3:00 pm
[2018-06-26] MEDS: TICAGRELOR 90 MG TABLET PO (09:36)
[2018-06-26] MEDS: Senna/Docusate Sodium 1 Tablet 2 TABLET PO (09:36)
[2018-06-26] MEDS: Aspirin 81 MG TAB.CHEW PO (09:36)
[2018-06-26] MEDS: Meloxicam 7.5 MG Tablet PO (09:37)
[2018-06-26] MEDS: Losartan Potassium 25 MG Tablet PO (09:37)
[2018-06-26] MEDS: Carvedilol 12.5 MG Tablet PO (09:37)
[2018-06-26] MEDS: Famotidine 20 MG Tablet PO (09:37)
[2018-06-26 09:45] VITALS: BP 122/73; PULSE 74; RESP 18; TEMP 36.8; O2SAT 99
--- NOTE | 2018-06-26 10:50 | CASEMGMT ---
LILIANA CARVAJAL Face to Face with patient for initial transition planning/care coordination assessment. RN WEI introduced self and role at [facility]. Patient lying in bed, alert and oriented. Patient willing to participate in assessment and is able to answer all questions appropriately. Care providers, pharmacy, and demographics verified. Patient wishes to discharge home and is setup with [facility] for outpatient therapy with providing transportation. Patient has walker and denies any additional needs. Patient states he has no further needs or concerns at this time. CM to follow for discharge planning needs that may arise. Disposition Plan: Patient to discharge home with outpatient therapy, family support, and follow-up plans in place. Emmy MACKEY, RN, CM
[2018-06-26 13:59] VITALS: BP 113/67; PULSE 82; RESP 16; O2SAT 100
--- NOTE | 2018-06-26 15:26 | PN_ITS ---
<Aly Brambila - Last Filed: 06/26/18 15:20> Subjective: Resting comfortably in chair at bedside. Ambulating well today. Pain well controlled. No SOB/Cough. No F/C. No Nausea. Eating well. - Physical Exam General: Alert, Oriented x3, Cooperative HEENT: Atraumatic, PERRLA, EOMI, Normocephalic Neck: Supple, No JVD, Negative Carotid Bruits Lungs: Clear to auscultation, Normal air movement Cardiovascular: Regular rate, No murmurs Abdomen: Bowel Sounds Present, Soft, Non Tender Extremities: No edema, Capillary Refill Less than 3 Seconds Skin: No rashes, No breakdown Musculoskeletal: No Tenderness to Palpation of Joints or Extremities Neurological: Cranial nerves II-XII grossly intact Psych/Mental Status: Normal Affect, Appropriate Vital Signs Temp Pulse Resp BP Pulse Ox 98.3 F 82 16 113/67 100 06/26/18 09:45 06/26/18 13:59 06/26/18 13:59 06/26/18 13:59 06/26/18 13:59 Oxygen Delivery Method Room Air Weight: 230 lb Body Mass Index (BMI) 33.0 Intake and Output for Last 24 Hours 06/24/18 06/25/18 06/26/18 23:59 23:59 23:59 Intake Total 1999 / 1999 990 / 990 Output Total 900 / 900 1300 / 1300 Balance 1100 / 1100 -310 / -310 Laboratory Tests Past 24 Hrs 06/26/18 06/26/18 06:14 06:14 WBC 16.4 H RBC 4.09 L Hgb 12.3 L Hct 36.5 L MCV 89.2 MCH 30.1 MCHC 33.7 RDW 13.4 RDW Differential 43.5 Plt Count 188 MPV 10.1 Sodium 139 Potassium 4.4 Chloride 106 Carbon Dioxide 25.0 Anion Gap 8 BUN 16 Creatinine 1.06 Estim Creat Clear Calc 83.22 Est GFR (MDRD) Af Amer 94 Est GFR (MDRD) Non-Af 78 BUN/Creatinine Ratio 15.1 Glucose 162 H Calcium 7.9 L Medical Necessity - Tobacco Use Smoking Status: Never smoker Assessment/Plan All Active Problems (Last Updated 10/09/17 @ 08:58 by Priti Dennis) NSTEMI (non-ST elevated myocardial infarction) (Acute) S/P PTCA (percutaneous transluminal coronary angioplasty) (Acute) 1. Osteoarthritis s/p right hi replacement - POD#1. Stable. Doing well. DVT ppx per ortho. 2. CAD - NSTEMI 09/2017. No cardiac issues. Follow up with [facility] as directed. Back on Billinta/aspirin when appropriate per cardiology. no NSAIDs with risk of bleeding. 3. HTN - stable Patient is medically stable for discharge. Thank you for the opportunity to participate in the care of this patient. This patient was seen by Aly Brambila PA-C under the supervision of Doctor Ashley. <Rakan Ramirez F - Last Filed: 06/26/18 15:32> - Physical Exam Vital Signs Temp Pulse Resp BP Pulse Ox 98.3 F 82 16 113/67 100 06/26/18 09:45 06/26/18 13:59 06/26/18 13:59 06/26/18 13:59 06/26/18 13:59 Oxygen Delivery Method Room Air Weight: 230 lb Body Mass Index (BMI) 33.0 Intake and Output for Last 24 Hours 06/24/18 06/25/18 06/26/18 23:59 23:59 23:59 Intake Total 1999 / 1999 990 / 990 Output Total 900 / 900 1300 / 1300 Balance 1100 / 1100 -310 / -310 Laboratory Tests Past 24 Hrs 06/26/18 06/26/18 06:14 06:14 WBC 16.4 H RBC 4.09 L Hgb 12.3 L Hct 36.5 L MCV 89.2 MCH 30.1 MCHC 33.7 RDW 13.4 RDW Differential 43.5 Plt Count 188 MPV 10.1 Sodium 139 Potassium 4.4 Chloride 106 Carbon Dioxide 25.0 Anion Gap 8 BUN 16 Creatinine 1.06 Estim Creat Clear Calc 83.22 Est GFR (MDRD) Af Amer 94 Est GFR (MDRD) Non-Af 78 BUN/Creatinine Ratio 15.1 Glucose 162 H Calcium 7.9 L Code Visit Addendum: Dr. Ramirez I personally examined the patient and reviewed the chart. I agree with the above. 53-year-old male presenting to the hospital with osteoarthritis, CAD status post an NSTEMI in September of this year, and hypertension presenting for an elective right hip replacement. Surgery went well and he was anxious to leave the hospital today. Note he follows with [facility] who said that it was okay for him to discontinue his Brilinta and aspirin following his N STEMI for this procedure. 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 Inpatient E&M: 01673 Subs Hosp L2
== END 2018-06-26 13:59 | disposition home or self-care (01) | DRG 470 ==
PROVIDERS: Admitting Provider Specialist; Family Provider Internal Medicine; PCP Internal Medicine; Referring Provider Specialist; Visit Provider Family Medicine
PROC: 0SR904A Replacement of Right Hip Joint with Ceramic on Polyethylene Synthetic Substitute, Uncemented, Open Approach (ICD-10-PCS; CPT 27284; principal; 2018-06-25 08:35)
DX: M16.11 Unilateral primary osteoarthritis, right hip (principal); I25.10 Atherosclerotic heart disease of native coronary artery without angina pectoris; G47.30 Sleep apnea, unspecified; I25.2 Old myocardial infarction; M81.0 Age-related osteoporosis without current pathological fracture; I10 Essential (primary) hypertension; Z95.5 Presence of coronary angioplasty implant and graft; Z23 Encounter for immunization
CPT/HCPCS: 36415; 73501; 73502; 76000; 80048; 82040; 85025; 85027; 87081; 97110; 97162; 97165; 97530; 99251; C1776; J7120; 90686; G0463

== ENCOUNTER → 2024-03-03 | Outpatient (CLI) | payer OTHER, SELFPAY ==
[2017-09-26 10:09] VITALS: BMI 32.1
[2024-03-03 18:51] LABS: Hemoglobin A1c 5.4 % (3.8-5.6)
== END | disposition home or self-care (01) ==
LOC: MTLAB 16:44
PROVIDERS: PCP Internal Medicine; Referring Provider Internal Medicine; Visit Provider Internal Medicine
DX: E11.9 Type 2 diabetes mellitus without complications (principal)
CPT/HCPCS: 36415; 83036